=== PATIENT | male | born 1985 | race Caucasian/White ===

== ENCOUNTER 2018-04-16 00:10 | Emergency (ER) | payer OTHER, MEDICAID, SELFPAY ==
[2018-04-16 00:20] VITALS: BP 139/80; PULSE 88; RESP 18; TEMP 36.3; O2SAT 99; BMI 31.6
--- NOTE | 2018-04-16 00:25 | DI.RAD.S_ITS ---
PROCEDURE: XR CHEST 1V INDICATIONS: Chest pain TECHNIQUE: One view of the chest was acquired. COMPARISON: None. FINDINGS: Surgical changes and devices: None. Lungs and pleura: No pleural effusions or pneumothorax. Lungs are clear. Mediastinum: Mediastinal contours appear normal. Heart size is normal. Bones and chest wall: No suspicious bony lesions. Overlying soft tissues appear unremarkable. IMPRESSION: 1. No acute cardiopulmonary disease. Dictated by: Remy Roberto M.D. on 04/16/2018 at 10:56 Approved by: Remy Roberto M.D. on 04/16/2018 at 10:56
--- NOTE | 2018-04-16 00:38 | ED_ITS ---
HPI - Chest Pain General Chief Complaint: Chest Pain Stated Complaint: CHEST PAIN 30 MIN Time Seen by Provider: 04/16/18 00:25 Source: patient Mode of arrival: ambulatory Limitations: no limitations History of Present Illness HPI narrative: Patient is an otherwise healthy 33-year-old male here for evaluation of symptoms that occurred at approximately 10 30/11 o'clock last evening. He states that that he was was at home when he had a sudden onset of right-sided chest pain that was associated with nausea and flushing and feeling very hot. States it did not get worse with taking a breath or movement or palpation. He has never had anything like this before. He states that the flushing and nausea have resolved however he still is having right-sided chest pain although it is improving from the start of the pain. Has not tried anything for prior to arrival Related Data Previous Rx's Medication Instructions Recorded divalproex [Depakote ER] 250 mg PO [facility] #90 tab 07/29/16 Allergies Allergy/AdvReac Type Severity Reaction Status Date / Time No Known Allergies Allergy Uncoded 10/20/17 11:53 Review of Systems Constitutional Denies fatigue and Denies fever(s) Comments: Flushing ENT Ears, Nose, Mouth, and Throat: Denies vertigo and Denies dizziness Cardiovascular Reports chest pain, Denies syncope, Denies leg edema, Denies palpitations and Denies dyspnea Respiratory Denies cough and Denies dyspnea Gastrointestinal Gastrointestinal: Denies abdominal pain, Reports nausea and Denies vomiting Musculoskeletal Denies myalgias and Denies arthralgias Integumentary/Breasts Denies lesions and Denies rash Neurologic Denies vertigo, Denies dizziness and Denies syncope Endocrine Denies fatigue and Denies palpitations Hematologic/Lymphatic Denies easy bleeding and Denies easy bruising [facility] Medical History Depression (Acute) Surgical History No pertinent past surgical history (Acute) Family History Grandfather High cholesterol Social History Smoking Status: Never smoker Exam Initial Vital Signs Initial Vital Signs: Vital Signs Temperature 97.4 F L 04/16/18 00:20 Pulse Rate 88 04/16/18 00:20 Respiratory Rate 18 04/16/18 00:20 Blood Pressure 139/80 04/16/18 00:20 Pulse Oximetry 99 04/16/18 00:20 Const General: cooperative, healthy appearing, comfortable, well developed, well groomed and No acute distress Orientation: alert, awake and oriented x3 HENMT Head: normal to inspection and normocephalic Chest Chest: normal inspection of the chest Resp Effort & Inspection: normal respiratory effort Auscultation: clear to auscultation bilaterally Cardio Rate: regular rate Rhythm: regular rhythm Heart Sounds: no murmurs Pulses: radial pulses present GI Inspection: non-distended Palpation: soft, No firm and No tender Skin Lesions: no lesions Rashes: no rashes Neuro General: alert, awake and oriented x3 Extrem General: normal to inspection and capillary refill normal Psych Appearance: grossly normal and well kempt Scores PERC Score Age greater than or equal to 50 years: No Heart rate greater than or equal to 100 bpm: No Room Air O2 Sat less than 95%: No Unilateral leg swelling: No Recent trauma or surgery: No Hemoptysis: No Prior PE or DVT: No Hormone Use: No Total PERC Score: 0 Course Orders Ordered: ED Orders 04/16/18 EKG-12 Lead Routine 04/16/18 00:25 XR chest 1V Stat Vital Signs - 8 hr 04/16/18 00:20 04/16/18 01:06 Temperature 97.4 F L Pulse Rate 88 72 Respiratory Rate 18 Blood Pressure 139/80 Blood Pressure [Right Arm] 117/66 Pulse Oximetry 99 99 [facility] - Chest Pain Imaging Data Chest x-ray: Attestation: I personally reviewed and interpreted this imaging study as follows: My impression: No focal consolidation No pneumothorax Normal size heart ECG Data Attestation: I personally reviewed and interpreted this ECG as follows: Prior ECG tracings: not available for review Interpretation: Sinus rhythm Ventricular rate 81 Normal axis Normal intervals Normal QRS No ST T wave changes [facility] Narrative Medical decision making narrative: Patient with a right-sided chest pain. Normal EKG when he was having symptoms. Chest x-ray is unremarkable. Low risk for PE. Low risk for ACS. Unsure as the exact etiology of the symptoms however will hold on further workup for now. I did discuss all this with the patient. He was instructed he needed to contact his primary care doctor for follow-up. He was given return precautions. He expressed understanding and agreement with plan. Discharge Plan Departure Patient Disposition: Home Clinical Impression: Atypical chest pain Instructions: DI for Atypical Chest Pain Activity Restrictions/Additional Instructions: Recommend that you give your primary care doctor a call to establish follow-up in to discuss any further testing that may be needed. You can return to the emergency department at any time for new or worsening symptoms Prescriptions: No Action divalproex [Depakote ER] 250 MG tablet extended release 24 hr 250 mg PO [facility] Qty: 90 RF: 5
[2018-04-16 01:06] VITALS: BP 117/66; PULSE 72; O2SAT 99
--- NOTE | 2018-04-21 15:42 | PC.NURSE ---
Called pt for follow up,no answer
== END 2018-04-16 01:13 | disposition home or self-care (01) ==
PROVIDERS: Emergency Provider Emergency Medicine; PCP Family Medicine
DX: R07.89 Other chest pain (principal)
CPT/HCPCS: 71045; 93005; 99282; 99284

== ENCOUNTER 2019-10-25 16:19 | Emergency (ER) | payer OTHER, MEDICAID, SELFPAY ==
--- NOTE | 2019-10-25 16:23 | DI.RAD.S_ITS ---
PROCEDURE: XR CHEST 1V INDICATIONS: chest pain TECHNIQUE: One view of the chest was acquired. COMPARISON: [facility], CR, XR CHEST 1V, 04/16/2018, 0:31. FINDINGS: Surgical changes and devices: None. Lungs and pleura: Lungs are clear. No pleural effusions or pneumothorax. Mediastinum: Mediastinal contours appear normal. Heart size is normal. Bones and chest wall: No suspicious bony lesions. Overlying soft tissues appear unremarkable. IMPRESSION: 1. No acute cardiopulmonary disease. Dictated by: Remy Roberto M.D. on 10/25/2019 at 16:54 Approved by: Remy Roberto M.D. on 10/25/2019 at 16:54
[2019-10-25 16:24] VITALS: BP 159/70; PULSE 60; RESP 18; TEMP 36.9; O2SAT 99; BMI 32.3
[2019-10-25 16:50] VITALS: BP 146/78; PULSE 64; RESP 24; O2SAT 100
--- NOTE | 2019-10-25 16:50 | ED.CHESTPAIN ---
HPI - Chest Pain General Chief Complaint: Chest Pain Stated Complaint: states chest pain for a couple days Time Seen by Provider: 10/25/19 16:33 Source: patient Mode of arrival: Ambulatory Limitations: no limitations History of Present Illness HPI narrative: 34-year-old male here for evaluation of 3 days of retrosternal chest pain. He states that it started 3 days ago after he ate dinner. He states it has been constant since them although he has had times when it was worse than others. No other associated symptoms. He did try Pepto-Bismol and [place] without any improvement. He did try some Rolaids which helped his symptoms in the short term but then it returned. No GI symptoms. He states that the pain is not worse with breathing. Potentially is worse with movement. Some nausea but no vomiting. Related Data Previous Rx's Medication Instructions Recorded venlafaxine 150 mg 150 mg PO DAILY #90 cap 10/18/19 capsule,extended release 24 hr famotidine [Pepcid] 20 mg PO DAILY #30 tab 10/25/19 Allergies Allergy/AdvReac Type Severity Reaction Status Date / Time No Known Drug Allergies Allergy Verified 10/25/19 18:17 Review of Systems Constitutional Constitutional: Denies fever(s) Cardiovascular Cardiovascular: Reports chest pain and Denies dyspnea Respiratory Respiratory: Denies cough and Denies dyspnea Gastrointestinal Gastrointestinal: Denies abdominal pain, Denies change in bowel habits, Reports nausea and Denies vomiting Genitourinary Genitourinary: Denies dysuria Integumentary/Breasts Skin/Breast: Denies rash Neurologic Neurologic: Denies behavioral changes Psychiatric Psychiatric: Denies behavioral changes Hematologic/Lymphatic Hematologic/Lymphatic: Denies easy bleeding and Denies easy bruising Patient History Medical History Depression (Acute) Surgical History No pertinent past surgical history (Acute) Family History Grandfather High cholesterol Social History Smoking Status: Never smoker Smoking Status: Never smoker alcohol intake frequency: 0-2 drinks per day Substance Use Type: does not use Exam Initial Vital Signs Initial Vital Signs: Vital Signs Temperature 98.4 F 10/25/19 16:24 Pulse Rate 60 10/25/19 16:24 Respiratory Rate 18 10/25/19 16:24 Blood Pressure 159/70 H 10/25/19 16:24 Pulse Oximetry 99 10/25/19 16:24 Const General: cooperative, comfortable and well developed Limitations: mental status not altered HENMT Head: normal to inspection and normocephalic Resp Effort & Inspection: normal respiratory effort Auscultation: clear to auscultation bilaterally Cardio Rate: regular rate Rhythm: regular rhythm GI Inspection: non-distended Palpation: soft, No firm and No tender Skin Lesions: no lesions Rashes: no rashes Neuro General: alert, awake and oriented x3 Cognition: normal cognition Speech: speech normal Extrem General: normal to inspection and capillary refill normal Psych Appearance: grossly normal and well kempt Scores HEART Score Heart Score history: Slightly Suspicious Heart Score EKG: Normal Heart Score Age: < 45 years old Heart Score risk factors: 1-2 risk factors Heart Score troponin: < or = to normal limit Heart Score Total: 1 Course Orders Ordered: ED Orders 10/25/19 16:23 XR chest 1V Stat EKG-12 Lead Stat 10/25/19 16:40 Complete Blood Count AUTO DIFF Stat Comprehensive Metabolic Panel Stat Lipase Stat Troponin & CK Cardiac Panel Stat Discontinued Medications Aspirin (Aspirin Chew) 324 mg PO NOW ONE Stop: 10/25/19 16:24 Last Admin: 10/25/19 17:31 Dose: Not Given Documented by: LILI Sodium Chloride (Normal Saline 0.9%) 1,000 mls @ 150 mls/hr IV CONT MISBAH Last Admin: 10/25/19 17:32 Dose: Not Given Documented by: LILI Vital Signs Vital signs: Vital Signs - 8 hr 10/25/19 16:24 10/25/19 16:50 10/25/19 17:00 Temperature 98.4 F Pulse Rate 60 64 59 L Respiratory Rate 18 24 16 Blood Pressure 159/70 H Blood Pressure [Left Arm] 146/78 H 145/71 H Pulse Oximetry 99 100 99 10/25/19 18:06 Temperature Pulse Rate 58 L Respiratory Rate 28 H Blood Pressure Blood Pressure [Left Arm] 158/70 H Pulse Oximetry 99 MDM - Chest Pain Lab Data Attestation: I reviewed the patient's lab results. Result diagrams: 10/25/19 16:40 10/25/19 16:40 Labs: Lab Results 10/25/19 10/25/19 Range/Units 16:40 16:40 WBC 15.6 H (4.5-11.0) X10^3/uL RBC 4.66 (4.5-5.9) X10^6/uL Hgb 13.7 (13.5-17.5) g/dL Hct 39.5 L (41-53) % MCV 84.8 (80-100) fL MCH 29.5 (26-34) PG MCHC 34.8 (30-36) % RDW 12.8 (11.6-14.8) % Plt Count 298 (150-400) X10^3/uL Neut % (Auto) 71.7 (50-75) % Lymph % (Auto) 19.5 L (25-40) % [place] % (Auto) 7.9 (3-14) % Eos % (Auto) 0.0 L (2-4) % Baso % (Auto) 0.9 (0-2) % Neut # (Auto) 92176 H (6008-3983) /uL Lymph # (Auto) 3000 (9052-2682) /uL [place] # (Auto) 1200 H (0-900) /uL Eos # (Auto) 0 (0-450) /uL Baso # (Auto) 100 (0-100) /uL Sodium 139 (137-145) mmol/L Potassium 3.6 (3.4-5.1) mmol/L Chloride 99 (98-107) mmol/L Carbon Dioxide 29 (22-32) mmol/L BUN 12 (9-20) mg/dL Creatinine 0.74 (0.66-1.25) mg/dL Estimated GFR > 60.0 (>60) mL/min BUN/Creatinine Ratio 16.2 (6-22) Glucose 129 H (70-100) mg/dL Calcium 9.7 (8.4-10.2) mg/dL Total Bilirubin 0.6 (0.2-1.3) mg/dL AST 26 (17-59) IU/L ALT 17 (<50) IU/L Alkaline Phosphatase 130 H (38-126) U/L Total Creatine Kinase 94 (55-170) U/L CK-MB (CK-2) TNP CK-MB (CK-2) Rel Index TNP Troponin I < 0.012 (0.01-0.034) ng/mL Total Protein 9.0 H (6.3-8.2) g/dL Albumin 5.0 (3.5-5.0) g/dL Globulin 4.0 (1.7-4.1) g/dL Albumin/Globulin Ratio 1.3 (1.0-2.8) Lipase 110 (23-300) U/L Imaging Data Chest x-ray: Radiologist's Impression: [address] [address] XRay Report Signed Patient: Fabian El DMR#: [id number] : 1985Acct:[id number] Age/Sex: 34 / MDate of Service: 10/25/19 Loc: ED Accession Number: [id number] Procedure: XR chest 1V Ordering Provider: Lev Garner D.O. PROCEDURE: XR CHEST 1V INDICATIONS: chest pain TECHNIQUE: One view of the chest was acquired. COMPARISON: [facility], , XR CHEST 1V, 04/16/2018, 0:31. FINDINGS: Surgical changes and devices: None. Lungs and pleura: Lungs are clear. No pleural effusions or pneumothorax. Mediastinum: Mediastinal contours appear normal. Heart size is normal. Bones and chest wall: No suspicious bony lesions. Overlying soft tissues appear unremarkable. IMPRESSION: 1. No acute cardiopulmonary disease. Dictated by: Remy Roberto M.D. on 10/25/2019 at 16:54 Approved by: Remy Roberto M.D. on 10/25/2019 at 16:54 ECG Data Attestation: I personally reviewed and interpreted this ECG as follows: Prior ECG tracings: not available for review Interpretation: Sinus bradycardia Ventricular rate of 57 Normal axis Normal QRS Normal QTC No ST T wave changes MDM Narrative Medical decision making narrative: Low risk heart score, consistent chest pain for 3 days. Nonspecific changes on the EKG. Troponin negative greater than 6 hours of the onset of symptoms. I do suspect that his symptoms are GI related. Will send home with a prescription for Pepcid. I also discussed other [id number] antacids he could take. Discussed return precautions and follow-up instructions. He expressed understanding and agreement. Discharge Plan Departure Patient Disposition: Home Clinical Impression: Atypical chest pain Instructions: DI for Gastroesophageal Reflux Disease (GERD) Activity Restrictions/Additional Instructions: Recommend that you start taking the prescription that you were given today on a daily basis for the next 7-10 days. This prescription was electronically transmitted to [facility]. After that you can take it as needed. You can also take [id number] antacids such as Maalox or Mylanta. These are the liquid version some of antacids. You can also take Tums or Rolaids. These are the chewable tablets. The generic version of these medications as appropriate. Contact your primary provider for follow-up. Prescriptions: New famotidine [Pepcid] 20 mg tablet 20 mg PO DAILY Qty: 30 RF: 0 No Action venlafaxine 150 mg capsule,extended release 24hr 150 mg PO DAILY Qty: 90 RF: 0
[2019-10-25 16:52] LABS: Add Manual Diff / Slide Review NO; Basophils Absolute Auto 100 /uL (0-100); Basophils Percent Auto 0.9 % (0-2); Eosinophils Absolute Auto 0 /uL (0-450); Hematocrit 39.5 % (41-53); Hemoglobin 13.7 g/dL (13.5-17.5); Lymphocytes Absolute Auto 3000 /uL (1100-4500); Lymphocytes Percent Auto 19.5 % (25-40); Mean Corpuscular HGB Conc 34.8 % (30-36); Mean Corpuscular Hemoglobin 29.5 PG (26-34); Mean Corpuscular Volume 84.8 fL (80-100); Monocytes Absolute Auto 1200 /uL (0-900); Monocytes Percent Auto 7.9 % (3-14); Neutrophils Absolute Auto 11200 /uL (1500-7000); Neutrophils Percent Auto 71.7 % (50-75); Platelet Count 298 X10^3/uL (150-400); Red Blood Cell Count 4.66 X10^6/uL (4.5-5.9); Red Cell Distribution Width 12.8 % (11.6-14.8); White Blood Cell Count 15.6 X10^3/uL (4.5-11.0)
[2019-10-25 17:00] VITALS: BP 145/71; PULSE 59; RESP 16; O2SAT 99
[2019-10-25 17:07] LABS: Alanine Aminotransferase 17 IU/L (<50); Albumin Globulin Ratio 1.3 (1.0-2.8); Alkaline Phosphatase 130 U/L (38-126); Aspartate Aminotransferase 26 IU/L (17-59); BUN Creatinine Ratio 16.2 (6-22); Bilirubin Total 0.6 mg/dL (0.2-1.3); Blood Urea Nitrogen 12 mg/dL (9-20); Calcium 9.7 mg/dL (8.4-10.2); Carbon Dioxide 29 mmol/L (22-32); Chloride 99 mmol/L (98-107); Creatine Kinase 94 U/L (55-170); Estimated Glomerular Filt Rate > 60.0 mL/min (>60); Glucose 129 mg/dL (70-100); HEMOLYSIS < 15 (0-50); Lipase 110 U/L (23-300); Potassium 3.6 mmol/L (3.4-5.1); Sodium 139 mmol/L (137-145)
[2019-10-25 17:19] LABS: Troponin I < 0.012 ng/mL (0.01-0.034)
[2019-10-25 18:06] VITALS: BP 158/70; PULSE 58; RESP 28; O2SAT 99
--- NOTE | 2019-10-25 18:07 | PC.NURSE ---
Pt respirations elevated when returning to restroom. Pt very short with this RN and wants to know what is going on. I informed him that we talked with Dr. Garner and he will be in shortly to discuss his results. I asked pt if there is anything I can go to assist or make things better. He states he just uncomfortable. Dr. Garner now at bedside.
== END 2019-10-25 18:34 | disposition home or self-care (01) ==
PROVIDERS: Emergency Provider Emergency Medicine
DX: R07.89 Other chest pain (principal); R00.1 Bradycardia, unspecified
CPT/HCPCS: 36415; 71045; 80053; 82550; 83690; 84484; 85025; 93005; 99284

== ENCOUNTER 2019-10-26 06:34 | Inpatient (IN) | payer OTHER, MEDICAID, SELFPAY ==
[2019-10-26] VITALS (7 sets, daily range): BP systolic 102–138; BP diastolic 49–77; PULSE 65–78; RESP 17–28; TEMP 36.5–37.2; O2SAT 91–99; BMI 34.8
[2019-10-26 06:54] LABS: Bacteria Urine None Seen
[2019-10-26 06:59] LABS: INR 1.2 (0.9-1.3); Prothrombin Time 13.8 SECONDS (10.1-12.7)
[2019-10-26 07:01] LABS: PTT Partial Thromboplastin Tim 35 SECONDS (26.4-36.2)
[2019-10-26 07:02] LABS: Add Manual Diff / Slide Review NO; Basophils Absolute Auto 100 /uL (0-100); Basophils Percent Auto 0.6 % (0-2); Eosinophils Absolute Auto 0 /uL (0-450); Hematocrit 39.7 % (41-53); Hemoglobin 13.9 g/dL (13.5-17.5); Lymphocytes Absolute Auto 1200 /uL (1100-4500); Lymphocytes Percent Auto 5.7 % (25-40); Mean Corpuscular Hemoglobin 29.6 PG (26-34); Mean Corpuscular Volume 84.4 fL (80-100); Monocytes Absolute Auto 2000 /uL (0-900); Monocytes Percent Auto 9.4 % (3-14); Neutrophils Absolute Auto 17700 /uL (1500-7000); Neutrophils Percent Auto 84.3 % (50-75); Platelet Count 343 X10^3/uL (150-400); Red Cell Distribution Width 12.7 % (11.6-14.8)
--- NOTE | 2019-10-26 07:03 | ED.ABDPAIN ---
HPI - Abdominal Pain General Chief Complaint: Abdominal Pain Stated Complaint: vomiting Time Seen by Provider: 10/26/19 07:00 Source: patient and old records reviewed Mode of arrival: Ambulatory Limitations: no limitations History of Present Illness HPI narrative: This is a 34-year-old male who comes emergency department with complaint of abdominal pain and vomiting. Patient was seen here yesterday complaining more of epigastric chest pain that had been present for several days. He was suspected have GERD and was sent home with a prescription for famotidine. Patient states as soon as he started taking it he started throwing up at home. Had for 5 episodes at home. States it was sort of brownish in coloration with chunks. He has not had any documented fevers but has had chills and sweats. He states that the chest discomfort has improved but now he has more abdominal discomfort he describes it as generalized but a little bit more crampy on the right side. He has been having bowel movements although he states a little bit less than normal. No color changes. He has been urinating without any issue, no dysuria, urgency or frequency. He denies any back or flank pain. Patient states he takes an antidepressant which is venlafaxine, he has not had any new medication changes. He denies any prior surgeries. Denies any allergies to medications. Denies any tobacco, alcohol or illicit. Related Data Previous Rx's Medication Instructions Recorded venlafaxine 150 mg 150 mg PO DAILY #90 cap 10/18/19 capsule,extended release 24 hr famotidine [Pepcid] 20 mg PO DAILY #30 tab 10/25/19 Allergies Allergy/AdvReac Type Severity Reaction Status Date / Time No Known Drug Allergies Allergy Verified 10/25/19 18:17 Review of Systems Review of Systems ROS Unobtainable: All systems reviewed & are unremarkable except as noted in HPI and below Patient History Medical History Depression (Acute) Surgical History No pertinent past surgical history (Acute) Family History Grandfather High cholesterol Brother Seizures Social History Smoking Status: Never smoker alcohol intake: never Smoking Status: Never smoker alcohol intake frequency: 0-2 drinks per day Substance Use Type: does not use Exam Narrative Exam Narrative: GENERAL: Alert and oriented x three, moderately obese male in mild distress. HEENT: Head normocephalic, atraumatic, EOMI, pupils reactive, face symmetric, moist mucous membranes NECK: Supple, full range of motion CARDIOVASCULAR: Regular rate and rhythm without murmurs, rubs or gallops. RESPIRATORY: Breath sounds equal bilaterally, no wheezes rales or rhonchi. ABDOMEN: Soft, positive right upper and right lower quadrant tenderness, greatest at the right lower quadrant. Normoactive bowel sounds all 4 quadrants. No guarding or rebound, rigidity, no mass, no distention. : No CVA tenderness EXTREMITIES: Normal range of motion, no clubbing or edema. Neurovascularly intact NEUROLOGICAL: Cranial nerves II through XII grossly intact. Moving all extremities. Normal gait. SKIN: Warm, dry, no petechiae, no rashes or lesions. Initial Vital Signs Initial Vital Signs: Vital Signs Temperature 98.9 F 10/26/19 06:39 Pulse Rate 78 10/26/19 06:39 Respiratory Rate 28 H 10/26/19 06:39 Blood Pressure 132/61 10/26/19 06:39 Pulse Oximetry 97 10/26/19 06:39 Course Orders Ordered: Enoxaparin Sodium (Lovenox) 40 mg SUBCUT DAILY [facility] Last Admin: 10/26/19 10:38 Dose: 40 mg Documented by: RAYSHAWN Lactated Ringer's (Lactated Ringers) 1,000 mls @ 125 mls/hr IV CONT [facility] Last Admin: 10/26/19 09:40 Dose: 125 mls/hr Documented by: NILA Piperacillin/Tazobactam/Dextrose (Zosyn) 3.375 gm in 50 mls @ 100 mls/hr IV Q6H [facility] Last Admin: 10/26/19 16:36 Dose: 100 mls/hr Documented by: Infusion: 10/26/19 11:55 Dose: 0 mls/hr Documented by: Admin: 10/26/19 10:38 Dose: 100 mls/hr Documented by: RAYSHAWN Ketorolac Tromethamine (Toradol) 30 mg IV Q6HR PRN PRN Reason: Pain, Moderate (4-6) Stop: 10/31/19 09:35 Last Admin: 10/26/19 16:35 Dose: 30 mg Documented by: Admin: 10/26/19 10:50 Dose: 30 mg Documented by: RAYSHAWN Naloxone HCl (Narcan) 0.2 mg IV Q2MIN PRN PRN Reason: Opiate Reversal Meds Stored In (Pharmacy) 1 each PO PRN PRN PRN Reason: PRN Ondansetron HCl (Zofran) 4 mg IV Q4HR PRN PRN Reason: Nausea And Vomiting Last Admin: 10/26/19 14:51 Dose: 4 mg Documented by: Admin: 10/26/19 10:50 Dose: 4 mg Documented by: RAYSHAWN Pantoprazole Sodium (Protonix) 40 mg IV DAILY [facility] Last Admin: 10/26/19 10:38 Dose: 40 mg Documented by: RAYSHAWN Venlafaxine HCl (Effexor Xr) 150 mg PO DAILY [facility] Last Admin: 10/26/19 11:56 Dose: Not Given Documented by: RAYSHAWN Discontinued Medications Sodium Chloride (Normal Saline 0.9%) 1,000 mls @ 1,000 mls/hr IV BOLUS ONE Stop: 10/26/19 08:08 Last Infusion: 10/26/19 09:33 Dose: 0 mls/hr Documented by: Admin: 10/26/19 07:58 Dose: 1,000 mls/hr Documented by: NILA Ketorolac Tromethamine (Toradol) 30 mg IV NOW ONE Stop: 10/26/19 07:39 Last Admin: 10/26/19 07:57 Dose: 30 mg Documented by: NILA Ondansetron HCl (Zofran) 4 mg IV NOW ONE Stop: 10/26/19 07:39 Last Admin: 10/26/19 07:58 Dose: 4 mg Documented by: NILA Vital Signs Vital signs: Vital Signs - 8 hr 10/26/19 06:39 Temperature 98.9 F Pulse Rate 78 Respiratory Rate 28 H Blood Pressure 132/61 Pulse Oximetry 97 MDM - Abdominal Pain Lab Data Attestation: I reviewed the patient's lab results. Result diagrams: 10/26/19 06:45 04/16/20 06:45 Labs: Lab Results 10/26/19 10/26/19 10/26/19 Range/Units 06:45 06:45 06:45 WBC 21.0 H (4.5-11.0) X10^3/uL RBC 4.70 (4.5-5.9) X10^6/uL Hgb 13.9 (13.5-17.5) g/dL Hct 39.7 L (41-53) % MCV 84.4 (80-100) fL MCH 29.6 (26-34) PG MCHC 35.0 (30-36) % RDW 12.7 (11.6-14.8) % Plt Count 343 (150-400) X10^3/uL Neut % (Auto) 84.3 H (50-75) % Lymph % (Auto) 5.7 L (25-40) % [place] % (Auto) 9.4 (3-14) % Eos % (Auto) 0.0 L (2-4) % Baso % (Auto) 0.6 (0-2) % Neut # (Auto) 62649 H (4593-0299) /uL Lymph # (Auto) 1200 (7496-1283) /uL [place] # (Auto) 2000 H (0-900) /uL Eos # (Auto) 0 (0-450) /uL Baso # (Auto) 100 (0-100) /uL PT 13.8 H (10.1-12.7) SECONDS INR 1.2 (0.9-1.3) APTT 35 (26.4-36.2) SECONDS Sodium (137-145) mmol/L Potassium (3.4-5.1) mmol/L Chloride (98-107) mmol/L Carbon Dioxide (22-32) mmol/L BUN (9-20) mg/dL Creatinine (0.66-1.25) mg/dL Estimated GFR (>60) mL/min BUN/Creatinine Ratio (6-22) Glucose (70-100) mg/dL Lactate (0.7-2.1) mmol/L Calcium (8.4-10.2) mg/dL Total Bilirubin (0.2-1.3) mg/dL AST (17-59) IU/L ALT (<50) IU/L Alkaline Phosphatase (38-126) U/L Total Creatine Kinase (55-170) U/L CK-MB (CK-2) (<2.37) ng/mL CK-MB (CK-2) Rel Index (1.5-5.0) % Troponin I (0.01-0.034) ng/mL Total Protein (6.3-8.2) g/dL Albumin (3.5-5.0) g/dL Globulin (1.7-4.1) g/dL Albumin/Globulin Ratio (1.0-2.8) Lipase (23-300) U/L Procalcitonin (<0.5) ng/mL Urine RBC 0-1/hpf (0-5/HPF) Urine WBC 1-5/hpf (0-5/HPF) Ur Squamous Epith Cells 1-5 /hpf (0-5/HPF) Urine Bacteria None seen (None) Urine Mucus 1+ H (Negative) Ur Culture Indicated? Cult not indicated 10/26/19 10/26/19 10/26/19 Range/Units 06:45 06:45 06:45 WBC (4.5-11.0) X10^3/uL RBC (4.5-5.9) X10^6/uL Hgb (13.5-17.5) g/dL Hct (41-53) % MCV (80-100) fL MCH (26-34) PG MCHC (30-36) % RDW (11.6-14.8) % Plt Count (150-400) X10^3/uL Neut % (Auto) (50-75) % Lymph % (Auto) (25-40) % [place] % (Auto) (3-14) % Eos % (Auto) (2-4) % Baso % (Auto) (0-2) % Neut # (Auto) (1057-2240) /uL Lymph # (Auto) (5996-3852) /uL [place] # (Auto) (0-900) /uL Eos # (Auto) (0-450) /uL Baso # (Auto) (0-100) /uL PT (10.1-12.7) SECONDS INR (0.9-1.3) APTT (26.4-36.2) SECONDS Sodium 140 (137-145) mmol/L Potassium 3.6 (3.4-5.1) mmol/L Chloride 101 (98-107) mmol/L Carbon Dioxide 24 (22-32) mmol/L BUN 13 (9-20) mg/dL Creatinine 0.63 L (0.66-1.25) mg/dL Estimated GFR > 60.0 (>60) mL/min BUN/Creatinine Ratio 20.6 (6-22) Glucose 165 H (70-100) mg/dL Lactate 1.3 (0.7-2.1) mmol/L Calcium 9.9 (8.4-10.2) mg/dL Total Bilirubin 0.8 (0.2-1.3) mg/dL AST 32 (17-59) IU/L ALT 18 (<50) IU/L Alkaline Phosphatase 119 (38-126) U/L Total Creatine Kinase (55-170) U/L CK-MB (CK-2) (<2.37) ng/mL CK-MB (CK-2) Rel Index (1.5-5.0) % Troponin I (0.01-0.034) ng/mL Total Protein 9.3 H (6.3-8.2) g/dL Albumin 5.2 H (3.5-5.0) g/dL Globulin 4.1 (1.7-4.1) g/dL Albumin/Globulin Ratio 1.3 (1.0-2.8) Lipase 30 D (23-300) U/L Procalcitonin 0.05 (<0.5) ng/mL Urine RBC (0-5/HPF) Urine WBC (0-5/HPF) Ur Squamous Epith Cells (0-5/HPF) Urine Bacteria (None) Urine Mucus (Negative) Ur Culture Indicated? 10/26/19 Range/Units 06:45 WBC (4.5-11.0) X10^3/uL RBC (4.5-5.9) X10^6/uL Hgb (13.5-17.5) g/dL Hct (41-53) % MCV (80-100) fL MCH (26-34) PG MCHC (30-36) % RDW (11.6-14.8) % Plt Count (150-400) X10^3/uL Neut % (Auto) (50-75) % Lymph % (Auto) (25-40) % [place] % (Auto) (3-14) % Eos % (Auto) (2-4) % Baso % (Auto) (0-2) % Neut # (Auto) (2539-4333) /uL Lymph # (Auto) (7174-0303) /uL [place] # (Auto) (0-900) /uL Eos # (Auto) (0-450) /uL Baso # (Auto) (0-100) /uL PT (10.1-12.7) SECONDS INR (0.9-1.3) APTT (26.4-36.2) SECONDS Sodium (137-145) mmol/L Potassium (3.4-5.1) mmol/L Chloride (98-107) mmol/L Carbon Dioxide (22-32) mmol/L BUN (9-20) mg/dL Creatinine (0.66-1.25) mg/dL Estimated GFR (>60) mL/min BUN/Creatinine Ratio (6-22) Glucose (70-100) mg/dL Lactate (0.7-2.1) mmol/L Calcium (8.4-10.2) mg/dL Total Bilirubin (0.2-1.3) mg/dL AST (17-59) IU/L ALT (<50) IU/L Alkaline Phosphatase (38-126) U/L Total Creatine Kinase 118 (55-170) U/L CK-MB (CK-2) 0.36 (<2.37) ng/mL CK-MB (CK-2) Rel Index 0.3 L (1.5-5.0) % Troponin I < 0.012 (0.01-0.034) ng/mL Total Protein (6.3-8.2) g/dL Albumin (3.5-5.0) g/dL Globulin (1.7-4.1) g/dL Albumin/Globulin Ratio (1.0-2.8) Lipase (23-300) U/L Procalcitonin (<0.5) ng/mL Urine RBC (0-5/HPF) Urine WBC (0-5/HPF) Ur Squamous Epith Cells (0-5/HPF) Urine Bacteria (None) Urine Mucus (Negative) Ur Culture Indicated? Point of care testing: Urine Dip Bedside Urine Glucose Negative Bedside Urine Bilirubin + 1 Bedside Urine Ketone +++ 80 Urine Specific [place] 1.025 Bedside Urine Occult Blood +/- Bedside Urine pH 6.0 Bedside Urine Protein ++ 100 Bedside Urine Urobilinogen 1+ 2mg Bedside Urine Nitrite - Negative Bedside Urine Leukocytes +/- [address] scan - abdomen/pelvis: Radiologist's Impression: [address] [address] [address] Scan Report Signed Patient: Fabian El DMR#: [id number] : 1985Acct:[id number] Age/Sex: 34 / MDate of Service: 10/26/19 Loc: ED Accession Number: [id number] Procedure: CT abdomen pelvis w con Ordering Provider: Florina San D.O. PROCEDURE: CT ABDOMEN PELVIS W CON INDICATIONS: abdominal pain, RUQ and RLQ tenderness. wbc 21 TECHNIQUE: After the administration of intravenous contrast, 5 mm thick sections acquired from the diaphragm to the symphysis. 5 mm coronal and sagittal reformats were acquired. For radiation dose reduction, the following was used: automated exposure control, adjustment of mA and/or kV according to patient size. COMPARISON: None. FINDINGS: Image quality: Excellent. ABDOMEN: Lung bases: Lung bases are clear. Heart size is normal. Solid organs: Liver is normal in size and enhancement. Gallbladder is distended. There is extensive inflammatory change in the fat adjacent to the gallbladder, either related to the gallbladder or the hepatic flexure of the colon. Biliary system is non dilated. Pancreas enhances normally. Spleen is normal in size and enhancement. No adrenal nodules. Kidneys demonstrate normal size and enhancement, without hydronephrosis. Peritoneum and bowel: Bowel loops demonstrate normal wall thickness and caliber. No free fluid or air. This is status of inflammatory change in the fat adjacent to the gallbladder and the hepatic flexure of the colon, indicating inflammation either related to the gallbladder or the hepatic flexure region of the colon. Nodes and vessels: No retroperitoneal or mesenteric adenopathy by size criteria. Aorta and inferior vena cava are normal in size. Miscellaneous: No ventral hernias. PELVIS: Genitourinary: Bladder wall thickness is normal. Miscellaneous: No inguinal hernias or adenopathy. Bones: No suspicious bony lesions. No vertebral body compression fractures. IMPRESSION: There is an acute inflammatory process in the right upper quadrant which either represents hepatic flexure region colonic diverticulitis versus cholecystitis and adjacent inflammatory change in the surrounding fat. Dictated by: Nacho Singh M.D. on 10/26/2019 at 8:17 Approved by: Nacho Singh M.D. on 10/26/2019 at 8:25 ECG Data Attestation: I personally reviewed and interpreted this ECG as follows: Interpretation: Sinus rhythm rate of 68 LA 141 QRS of 111 and QTC of 445. No ST elevation or depression appreciated. Patient has not change in lead 3 but appears similar to prior EKG from 04/16/2018 without any new changes. MDM Narrative Medical decision making narrative: Patient lab showed a leukocytosis yesterday 15 is 21 this morning, hematocrit is 39. Patient has left shift with neutrophils at 84% and lymphocytes of 5.7 decreased from 19 yesterday.. Creatinine is in normal range with normal electrolytes. Glucose is 165 with normal LFTs total protein is elevated on both visits. Lactate blood cultures were included as patient does have an elevation in his white count although this may be reactive as well as procalcitonin and the show no major elevation. Patient's urine shows ketones some bili and protein and leukocyte esterase. Patient has 1-5 wbc's but also 1-5 squamous epithelials with no bacteria. Discussed with Dr. Dasilva, patient has right upper and some right lower quadrant tenderness. He has inflammation adjacent to the gallbladder. His LFTs are normal. His pain did start sort of epigastric and chest region and has moved to his abdomen and has been vomiting several times overnight. After review of images Dr. Perez evaluated patient in the department. Plan for observation for suspected colitis vs. cholecystitis although suspicion is higher for colitis with his RLQ and RUQ pain, normal LFTs and negative procalcitonin. Dr. Dasilva will order antibiotics. Discharge Plan Departure Patient Disposition: Admitted as Observation Clinical Impression: Colitis Discharge Date/Time: 10/26/19 09:41 Admit Date/Time: 10/26/19 09:14 Admit Provider: Francisco Dasilva
[2019-10-26 07:09] LABS: RBC Urine 0-1/HPF (0-5/HPF); Squamous Epithelial Cell Urine 1-5 /HPF (0-5/HPF); WBC Urine 1-5/HPF (0-5/HPF)
[2019-10-26 07:10] LABS: Culture Indicated Urine Cult Not Indicated; Mucus Urine 1+ (Negative)
[2019-10-26 07:30] LABS: Alanine Aminotransferase 18 IU/L (<50); Albumin 5.2 g/dL (3.5-5.0); Albumin Globulin Ratio 1.3 (1.0-2.8); Alkaline Phosphatase 119 U/L (38-126); Aspartate Aminotransferase 32 IU/L (17-59); BUN Creatinine Ratio 20.6 (6-22); Bilirubin Total 0.8 mg/dL (0.2-1.3); Blood Urea Nitrogen 13 mg/dL (9-20); Calcium 9.9 mg/dL (8.4-10.2); Carbon Dioxide 24 mmol/L (22-32); Chloride 101 mmol/L (98-107); Estimated Glomerular Filt Rate > 60.0 mL/min (>60); Globulin 4.1 g/dL (1.7-4.1); Glucose 165 mg/dL (70-100); HEMOLYSIS < 15 (0-50); Lipase 30 U/L (23-300); Potassium 3.6 mmol/L (3.4-5.1); Sodium 140 mmol/L (137-145); Total Protein 9.3 g/dL (6.3-8.2)
--- NOTE | 2019-10-26 07:32 | DI.CT.S_ITS ---
PROCEDURE: CT ABDOMEN PELVIS W CON INDICATIONS: abdominal pain, RUQ and RLQ tenderness. wbc 21 TECHNIQUE: After the administration of intravenous contrast, 5 mm thick sections acquired from the diaphragm to the symphysis. 5 mm coronal and sagittal reformats were acquired. For radiation dose reduction, the following was used: automated exposure control, adjustment of mA and/or kV according to patient size. COMPARISON: None. FINDINGS: Image quality: Excellent. ABDOMEN: Lung bases: Lung bases are clear. Heart size is normal. Solid organs: Liver is normal in size and enhancement. Gallbladder is distended. There is extensive inflammatory change in the fat adjacent to the gallbladder, either related to the gallbladder or the hepatic flexure of the colon. Biliary system is non dilated. Pancreas enhances normally. Spleen is normal in size and enhancement. No adrenal nodules. Kidneys demonstrate normal size and enhancement, without hydronephrosis. Peritoneum and bowel: Bowel loops demonstrate normal wall thickness and caliber. No free fluid or air. This is status of inflammatory change in the fat adjacent to the gallbladder and the hepatic flexure of the colon, indicating inflammation either related to the gallbladder or the hepatic flexure region of the colon. Nodes and vessels: No retroperitoneal or mesenteric adenopathy by size criteria. Aorta and inferior vena cava are normal in size. Miscellaneous: No ventral hernias. PELVIS: Genitourinary: Bladder wall thickness is normal. Miscellaneous: No inguinal hernias or adenopathy. Bones: No suspicious bony lesions. No vertebral body compression fractures. IMPRESSION: There is an acute inflammatory process in the right upper quadrant which either represents hepatic flexure region colonic diverticulitis versus cholecystitis and adjacent inflammatory change in the surrounding fat. Dictated by: Nacho Singh M.D. on 10/26/2019 at 8:17 Approved by: Nacho Singh M.D. on 10/26/2019 at 8:25
[2019-10-26] MEDS: KETOROLAC 60 MG/2 ML VIAL 30 MG IV (07:57)
[2019-10-26] MEDS: SODIUM CHLORIDE 0.9% 1,000 ML 1000 ML IV (07:58)
[2019-10-26] MEDS: ONDANSETRON 4 MG/2 ML INJ IV ×3 (07:58→14:51)
[2019-10-26 08:02] LABS: Creatine Kinase 118 U/L (55-170)
[2019-10-26 08:03] LABS: Lactate (Lactic Acid) 1.3 mmol/L (0.7-2.1)
[2019-10-26 08:15] LABS: Troponin I < 0.012 ng/mL (0.01-0.034)
[2019-10-26 08:18] LABS: CKMB % Relative Index 0.3 % (1.5-5.0); Creatine Kinase MB 0.36 ng/mL (<2.37)
[2019-10-26 08:29] LABS: Procalcitonin 0.05 ng/mL (<0.5)
--- NOTE | 2019-10-26 09:38 | DI.NM.S_ITS ---
PROCEDURE: NM HIDA NO EJECTION FRACTION RADIOPHARMACEUTICAL: 5.2 mCi Tc-99m mebrofenin IV. INDICATIONS: abnormal CT r/o acalculus cholecystitis TECHNIQUE: Following intravenous administration of Tc-99m mebrofenin, sequential anterior abdominal images were obtained through at least 60 minutes. COMPARISON: [facility], CT, CT ABDOMEN PELVIS W CON, 10/26/2019, 7:45. FINDINGS: There is normal tracer uptake and excretion by the liver. There is normal visualization of intrahepatic ducts and common bile duct. There is absence of radiotracer activity in the gallbladder up to 120 minutes after administration There is normal tracer excretion into duodenum. IMPRESSION: Absence of radiotracer uptake in the gallbladder consistent with acute cholecystitis. Dictated by: Veronica Humphrey MD, PhD on 10/26/2019 at 15:13 Approved by: Veronica Humphrey MD, PhD on 10/26/2019 at 15:15
--- NOTE | 2019-10-26 09:38 | PM.HP.1 ---
History of Present Illness History of Present Illness Date Patient Seen: 10/26/19 Time Patient Seen: 09:25 Date of Onset of Symptoms: 10/25/19 Chief complaint: vomiting Narrative: The patient is a 34-year-old who was in the emergency room yesterday with chest pain. He was evaluated and thought to have symptoms related to reflux and was sent home on from odd a [place]. He vomited it and came back to the emergency room with pain in the right upper quadrant. Pain increases with movement. It is a dull ache. He also cuts off is breathing when he tries to take a deep breath. He has not had this before. He does have occasional nausea over time. He has had no prior abdominal operations. (Actually he has had no operations at all) Patient History Medical History Depression (Acute) Surgical History No pertinent past surgical history (Acute) Family & Social History Family History Grandfather High cholesterol Brother Seizures Safety & Behavioral: Feels Safe in Current Yes Environment Tobacco & Substance use: Smoking Status Never smoker alcohol intake frequency 0-2 drinks per day Substance Use Type does not use Meds Home Medications and Allergies Home Medications Medication Instructions Recorded Confirmed Type venlafaxine 150 mg 150 mg PO DAILY #90 cap 10/18/19 Rx capsule,extended release 24 hr famotidine [Pepcid] 20 mg PO DAILY #30 tab 10/25/19 Rx Allergies Allergy/AdvReac Type Severity Reaction Status Date / Time No Known Drug Allergies Allergy Verified 10/25/19 18:17 Review of Systems Review of Systems Narrative: Patient now has occasional pain especially in his left eye and causes him to have a headache. He wears glasses. No earaches or sore throat. No tooth aches at this time. Denies any cough or cold right now. No sputum production. No asthma. He does have occasional seasonal allergies to dust. No problems with his heart that he is aware of. No murmurs. He was evaluated in the past for chest pain and had an EKG and was told that he might have had a heart attack and then was told he did not have a heart attack. Patient denies any black or bloody bowel movements. He says occasionally is eyes twitch back in for thin he thinks he may have a frontal lobe seizure. It is never been evaluated. No unusual bruising or bleeding. He does have depression and is treated with medication. No anxiety. No hallucinations. He urinates frequently throughout the day in fairly large volumes he says. He does drink a lot of coffee however he says. Exam Vital Signs (past 8 hours): - 10/26/19 06:39 Temperature 98.9 F Pulse Rate 78 Respiratory Rate 28 H Blood Pressure 132/61 Pulse Oximetry 97 Oxygen Delivery Method Room Air Narrative Exam Narrative: Cooperative gentleman laying fairly still. He is in no distress. Bit overweight. His eyes are nonicteric. Pupils are large equal round reactive to light. Conjunctivae are pink. Ears without lesion. Oral mucosa is pink moist teeth are intact. No nodes in the neck supraclavicular areas. No masses in the neck. No bruits in the neck. His lungs are clear to auscultation though he does have decreased breath sounds in the bases. He stops breathing because the pain is right abdomen. Patient no wheezing or rhonchi. Equal to percussion bilaterally. Heart seems a little hyperdynamic and may have a soft murmur at the left sternal border without radiation into the neck. No gallop. His abdomen is protuberant soft. There is localized tenderness in the right abdomen just below the rib cage laterally. The remainder of his abdomen is soft nontender. There are no ventral hernias appreciated. His extremities are without cyanosis or clubbing. No bony defects noted. No swelling of the joints. His reflexes are hyper reflexive 3+. He is alert and oriented x3. Speech rate and content are appropriate. Affect is appropriate. Uvula elevates in the midline face is symmetric tongue is midline. Objective Imaging CT scan - abdomen: My impression: Patient has inflammation in the right abdomen near the hepatic flexure and adjacent to the gallbladder. The gallbladder wall does not seem to be thickened and I see no defect suggestive of stones within the gallbladder. The remainder of his abdomen is unremarkable except for lot of fluid in the stomach. Labs Result Diagrams: 10/26/19 06:45 10/26/19 06:45 Labs: Laboratory Results - last 24 hr 10/26/19 10/26/19 10/26/19 06:45 06:45 06:45 WBC 21.0 H RBC 4.70 Hgb 13.9 Hct 39.7 L MCV 84.4 MCH 29.6 MCHC 35.0 RDW 12.7 Plt Count 343 Neut % (Auto) 84.3 H Lymph % (Auto) 5.7 L [place] % (Auto) 9.4 Eos % (Auto) 0.0 L Baso % (Auto) 0.6 Neut # (Auto) 28286 H Lymph # (Auto) 1200 [place] # (Auto) 2000 H Eos # (Auto) 0 Baso # (Auto) 100 PT 13.8 H INR 1.2 APTT 35 Sodium Potassium Chloride Carbon Dioxide BUN Creatinine Estimated GFR BUN/Creatinine Ratio Glucose Lactate Calcium Total Bilirubin AST ALT Alkaline Phosphatase Total Creatine Kinase CK-MB (CK-2) CK-MB (CK-2) Rel Index Troponin I Total Protein Albumin Globulin Albumin/Globulin Ratio Lipase Procalcitonin Urine RBC 0-1/hpf Urine WBC 1-5/hpf Ur Squamous Epith Cells 1-5 /hpf Urine Bacteria None seen Urine Mucus 1+ H Ur Culture Indicated? Cult not indicated 10/26/19 10/26/19 10/26/19 06:45 06:45 06:45 WBC RBC Hgb Hct MCV MCH MCHC RDW Plt Count Neut % (Auto) Lymph % (Auto) [place] % (Auto) Eos % (Auto) Baso % (Auto) Neut # (Auto) Lymph # (Auto) [place] # (Auto) Eos # (Auto) Baso # (Auto) PT INR APTT Sodium 140 Potassium 3.6 Chloride 101 Carbon Dioxide 24 BUN 13 Creatinine 0.63 L Estimated GFR > 60.0 BUN/Creatinine Ratio 20.6 Glucose 165 H Lactate 1.3 Calcium 9.9 Total Bilirubin 0.8 AST 32 ALT 18 Alkaline Phosphatase 119 Total Creatine Kinase CK-MB (CK-2) CK-MB (CK-2) Rel Index Troponin I Total Protein 9.3 H Albumin 5.2 H Globulin 4.1 Albumin/Globulin Ratio 1.3 Lipase 30 D Procalcitonin 0.05 Urine RBC Urine WBC Ur Squamous Epith Cells Urine Bacteria Urine Mucus Ur Culture Indicated? 10/26/19 06:45 WBC RBC Hgb Hct MCV MCH MCHC RDW Plt Count Neut % (Auto) Lymph % (Auto) [place] % (Auto) Eos % (Auto) Baso % (Auto) Neut # (Auto) Lymph # (Auto) [place] # (Auto) Eos # (Auto) Baso # (Auto) PT INR APTT Sodium Potassium Chloride Carbon Dioxide BUN Creatinine Estimated GFR BUN/Creatinine Ratio Glucose Lactate Calcium Total Bilirubin AST ALT Alkaline Phosphatase Total Creatine Kinase 118 CK-MB (CK-2) 0.36 CK-MB (CK-2) Rel Index 0.3 L Troponin I < 0.012 Total Protein Albumin Globulin Albumin/Globulin Ratio Lipase Procalcitonin Urine RBC Urine WBC Ur Squamous Epith Cells Urine Bacteria Urine Mucus Ur Culture Indicated? Assessment & Plan Assessment & Plan narrative: It is difficult to tell if the patient has acalculous cholecystitis causing inflammation in the adjacent colon or if he has diverticulitis involving the hepatic flexure and this has involve the adjacent gallbladder. I would like to get a HIDA scan to determine if he does have acute cholecystitis. We will begin him on broad-spectrum antibiotics. Hopefully we can avoid an operation. His white blood cell count is elevated there was procalcitonin is normal. His liver function tests however are completely normal which is a little unusual for acute cholecystitis. Will continue his antidepressant medicines. Will hydrate with IV fluids.
[2019-10-26] MEDS: LACTATED RINGERS 1,000 ML 125 ML IV ×3 (09:40→22:18)
[2019-10-26] MEDS: ENOXAPARIN 40 MG/0.4 ML SYRINGE SUBCUT (10:38)
[2019-10-26] MEDS: PANTOPRAZOLE 40 MG VIAL IV (10:38)
[2019-10-26] MEDS: PIPERACILLIN-TAZO 3.375 GM/50 ML FROZ.PIGGY IV ×3 (10:38→22:18)
[2019-10-26] MEDS: KETOROLAC 30 MG/ML VIAL IV ×3 (10:50→22:18)
--- NOTE | 2019-10-26 14:08 | PC.NURSE ---
Admit Note Patient arrived to room 223 from ER via wheelchair at 1000, able to walk to bed, steady on feet. Reported Toradol and Zofran effective for pain control and nausea. Denies nausea. Reports minor pain to right upper abdomen but declines further medication. Valuables locked up in safe, home meds sent to pharmacy for lockup. Oriented to room, plan of care, and to call light/bed/tv controls. Call light within reach. Taken down to [facility] med via wheelchair for HIDA scan at 1245.
[2019-10-26] MEDS: HYDROMORPHONE 1 MG INJ IV (22:25)
[2019-10-27] VITALS (7 sets, daily range): BP systolic 102–122; BP diastolic 52–63; PULSE 81–86; RESP 16–18; TEMP 36.9–38.2; O2SAT 91–95
[2019-10-27] MEDS: PIPERACILLIN-TAZO 3.375 GM/50 ML FROZ.PIGGY IV ×2 (04:45→09:03)
[2019-10-27] MEDS: HYDROMORPHONE 1 MG INJ IV (04:46)
[2019-10-27 04:56] LABS: Add Manual Diff / Slide Review NO; Basophils Absolute Auto 100 /uL (0-100); Basophils Percent Auto 0.3 % (0-2); Eosinophils Absolute Auto 0 /uL (0-450); Hematocrit 37.8 % (41-53); Lymphocytes Absolute Auto 1800 /uL (1100-4500); Lymphocytes Percent Auto 8.3 % (25-40); Mean Corpuscular HGB Conc 34.4 % (30-36); Mean Corpuscular Hemoglobin 29.6 PG (26-34); Monocytes Absolute Auto 2500 /uL (0-900); Monocytes Percent Auto 11.4 % (3-14); Neutrophils Absolute Auto 17800 /uL (1500-7000); Platelet Count 291 X10^3/uL (150-400); Red Cell Distribution Width 12.7 % (11.6-14.8); White Blood Cell Count 22.3 X10^3/uL (4.5-11.0)
[2019-10-27 04:59] LABS: Alanine Aminotransferase 19 IU/L (<50); Albumin 4.3 g/dL (3.5-5.0); Albumin Globulin Ratio 1.2 (1.0-2.8); Alkaline Phosphatase 88 U/L (38-126); Aspartate Aminotransferase 38 IU/L (17-59); Bilirubin Total 1.8 mg/dL (0.2-1.3); Blood Urea Nitrogen 11 mg/dL (9-20); Calcium 9.4 mg/dL (8.4-10.2); Carbon Dioxide 31 mmol/L (22-32); Chloride 100 mmol/L (98-107); Estimated Glomerular Filt Rate > 60.0 mL/min (>60); Globulin 3.5 g/dL (1.7-4.1); Glucose 103 mg/dL (70-100); HEMOLYSIS < 15 (0-50); Potassium 3.8 mmol/L (3.4-5.1); Sodium 139 mmol/L (137-145); Total Protein 7.8 g/dL (6.3-8.2)
--- NOTE | 2019-10-27 06:38 | PC.NURSE ---
Patient voided 100 mL of clear vaibhav/concentrated urine. Bladder scan showing approximately 300 mL. Patient declines to attempt to void again at this time and declines any other intervention. Patient slept majority of shift after being medicated with Dilaudid for pain 01/18 to RUQ. Denies N/V.
[2019-10-27] MEDS: PANTOPRAZOLE 40 MG VIAL IV (08:58)
--- NOTE | 2019-10-27 11:08 | PM.PN.1 ---
Subjective Subjective Date Patient Seen: 10/27/19 Time Patient Seen: 11:08 Interval history: No acute events overnight. Pt had HIDA scan last evening which is c/w cholecystitis. He feels his pain is somewhat better, but he c/o focal RUQ pain when he takes a deep breath, moves around in the bed or walks around. He denies nausea/vomiting. Exam Vital Signs (past 8 hours): - 10/27/19 04:30 10/27/19 08:00 Temperature 98.9 F 99.4 F Pulse Rate 85 86 Respiratory Rate 18 16 Blood Pressure 122/61 102/52 L Pulse Oximetry 93 95 Oxygen Delivery Method Room Air Oxygen Flow Rate 0 Narrative Exam Narrative: GENERAL: Alert, moderately uncomfortable, moderatly obese. Appears stated age. Answers questions promptly and appropriately. Vital signs noted. HENT: Normocephalic, atraumatic. Hearing intact. Oral mucosa is pink and moist. EYES: Conjunctiva pink, sclera white, no periorbital swelling. CARDIOVASCULAR: Regular rate. No pedal edema. RESPIRATORY: Non-tachypneic, breathing comfortably on room air. GASTROINTESTINAL: Abdomen soft; focal RUQ TTP, no flank tenderness, no abdominal bloating, non-tender in all other quadrants GENITALURINARY: No flank tenderness. MUSCULOSKELETAL: Equal tone and mass bilaterally. SKIN: Warm, dry, soft, appropriate color for ethnicity. No other lesions, rashes, or wounds. NEURO: Alert and Oriented X 3. No gross sensory deficits, or cognitive issues. PSYCH: Appropriate affect and mood. Objective Imaging HIDA scan: My impression: Gall bladder doesn't fill; CBD not obstructed Radiologist's impression: PROCEDURE: NM HIDA NO EJECTION FRACTION RADIOPHARMACEUTICAL: 5.2 mCi Tc-99m mebrofenin IV. INDICATIONS: abnormal CT r/o acalculus cholecystitis TECHNIQUE: Following intravenous administration of Tc-99m mebrofenin, sequential anterior abdominal images were obtained through at least 60 minutes. COMPARISON: [facility], CT, CT ABDOMEN PELVIS W CON, 10/26/2019, 7:45. FINDINGS: There is normal tracer uptake and excretion by the liver. There is normal visualization of intrahepatic ducts and common bile duct. There is absence of radiotracer activity in the gallbladder up to 120 minutes after administration There is normal tracer excretion into duodenum. IMPRESSION: Absence of radiotracer uptake in the gallbladder consistent with acute cholecystitis. Labs Result Diagrams: 10/27/19 04:35 10/27/19 04:35 Labs: Laboratory Results - last 24 hr 10/27/19 10/27/19 04:35 04:35 WBC 22.3 H RBC 4.40 L Hgb 13.0 L Hct 37.8 L MCV 86.0 MCH 29.6 MCHC 34.4 RDW 12.7 Plt Count 291 Neut % (Auto) 80.0 H Lymph % (Auto) 8.3 L [place] % (Auto) 11.4 Eos % (Auto) 0.0 L Baso % (Auto) 0.3 Neut # (Auto) 93439 H Lymph # (Auto) 1800 [place] # (Auto) 2500 H Eos # (Auto) 0 Baso # (Auto) 100 Sodium 139 Potassium 3.8 Chloride 100 Carbon Dioxide 31 BUN 11 Creatinine 0.92 Estimated GFR > 60.0 BUN/Creatinine Ratio 12.0 Glucose 103 H Calcium 9.4 Total Bilirubin 1.8 H AST 38 ALT 19 Alkaline Phosphatase 88 Total Protein 7.8 Albumin 4.3 Globulin 3.5 Albumin/Globulin Ratio 1.2 Assessment & Plan Assessment and plan (1) Atypical chest pain: Current visit: No Status: Acute (2) Colitis: Current visit: Yes Status: Acute (3) Depression: Current visit: No Status: Acute (4) Cholecystitis: Current visit: Yes Status: Acute (5) Hyperbilirubinemia: Current visit: Yes Status: Acute (6) Obesity: Current visit: Yes Status: Acute Assessment & Plan narrative: This is a 34 yo man with six days of symptoms beginning with retrosternal chest pain, which is now focal in the RUQ and worse on inspiration. He had some nausea and vomiting initially, but denies it now. His WBC continues to go up in spite of getting Zosyn. He is on 3.375gm Q6. His left shift is improving, but WBC continues to go up. He feels his pain is slightly improved, but he still has RUQ tenderness and pain on inspiratory effort. His HIDA scan is c/w cholecystitis, but his CT scan looks like he has a lot of local inflammation of the colon. Plan: NPO except for water and ice chips Increase zosyn dose to 4.5gm Q6 plan for lap/possible open cholecystectomy as soon as covid test is resulted COVID 19 testing per pre op protocol Repeat CBC/CMP this PM Ambulate as tolerated TID IS frequently hold DVT ppx for pending OR Time Spent With Patient Time with patient: 25 - 35 minutes Quality VTE Deep Vein Thrombosis/Pulmonary Embolism Present on Admission: No
--- NOTE | 2019-10-27 11:39 | PC.NURSE ---
Day shift note: Patient awake, alert, and pleasant. Encouraged ambulation in room while awake, steady gait to BR. IS teaching performed, demonstrated technique and use, verbalized understanding of importance. SCDs in place while sleeping, or resting in bed. IVF infusing, voiding in urinal. Tolerating ice chips and water, no nausea. COVID-19 sent out at 1015, isolation precautions initiated. Tenderness with light palpation to Right upper quadrant, abdomen round, active BS. Calls appropriately for staff assist. Dr. Mancilla at bedside this am. Patient in contact with family via hospital phone.
--- NOTE | 2019-10-27 13:03 | CM.IDA ---
Initial DCP Assessment Note: Pt is a 34 yo male, resident of [facility]. Pt scheduled for surgery to remove his gallbladder once COVID-19 test results are back, sent at 1015 this AM PCP: None listed Payer: Modality Met w/pt this morning, introduced role. Pt is an otherwise healthy and active person, lives alone but plans to have his mother help him during recovery. No needs from DC planning team at this time. Will follow closely in case DC needs or concerns arise. P: DC home w/family once medically cleared KRISTINA Chester Discharge Planning/Care Management CM Discharge Assessment Start: 10/27/19 12:59 Freq: Status: Active Protocol: Document 10/27/19 12:59 BARRETT (Rec: 10/27/19 13:03 BARRETT [id number]) Discharge Planning Assessment Assigned Operations Support Specialist KRISTINA Hamlin DPOA/Assigned Designee Name mother [place] Contact Information [phone] Advance Directives? No Advance Directives on File No History Provided By Patient Prior Living Arrangements Apartment/Condo Household Members none Type of transporation used prior to Drives own vehicle admit Willing to Return to Facility? No Independent with ADL's Yes Is patient alert and oriented? Yes Barriers to Discharge No Discharge Plan Home Transportation Arrangement Family Referrals Initiated None needed Whiteboard Updated in Patient Room with Yes name and ext. # of Operations Support Specialist Review Status In Process
[2019-10-27 14:30] LABS: Add Manual Diff / Slide Review NO; Basophils Absolute Auto 100 /uL (0-100); Basophils Percent Auto 0.6 % (0-2); Eosinophils Absolute Auto 0 /uL (0-450); Eosinophils Percent Auto 0.1 % (2-4); Hematocrit 35.7 % (41-53); Hemoglobin 12.1 g/dL (13.5-17.5); Lymphocytes Absolute Auto 1700 /uL (1100-4500); Lymphocytes Percent Auto 9.3 % (25-40); Mean Corpuscular Hemoglobin 29.4 PG (26-34); Mean Corpuscular Volume 86.5 fL (80-100); Monocytes Absolute Auto 1800 /uL (0-900); Monocytes Percent Auto 9.9 % (3-14); Neutrophils Absolute Auto 14700 /uL (1500-7000); Neutrophils Percent Auto 80.1 % (50-75); Platelet Count 285 X10^3/uL (150-400); Red Blood Cell Count 4.13 X10^6/uL (4.5-5.9); Red Cell Distribution Width 12.6 % (11.6-14.8); White Blood Cell Count 18.4 X10^3/uL (4.5-11.0)
[2019-10-27] MEDS: PIPERACILLIN-TAZO 4.5 GM/100 ML FROZ.PIGGY IV ×2 (14:37→20:23)
[2019-10-27 14:41] LABS: Alanine Aminotransferase 23 IU/L (<50); Albumin 4.1 g/dL (3.5-5.0); Albumin Globulin Ratio 1.2 (1.0-2.8); Alkaline Phosphatase 94 U/L (38-126); Aspartate Aminotransferase 43 IU/L (17-59); BUN Creatinine Ratio 13.8 (6-22); Bilirubin Total 1.5 mg/dL (0.2-1.3); Blood Urea Nitrogen 12 mg/dL (9-20); Carbon Dioxide 28 mmol/L (22-32); Chloride 100 mmol/L (98-107); Estimated Glomerular Filt Rate > 60.0 mL/min (>60); Globulin 3.4 g/dL (1.7-4.1); Glucose 108 mg/dL (70-100); HEMOLYSIS < 15 (0-50); Potassium 3.5 mmol/L (3.4-5.1); Sodium 137 mmol/L (137-145); Total Protein 7.5 g/dL (6.3-8.2)
[2019-10-27] MEDS: LACTATED RINGERS 1,000 ML 125 ML IV (14:42)
[2019-10-27] MEDS: KETOROLAC 30 MG/ML VIAL IV (15:56)
[2019-10-27] MEDS: ACETAMINOPHEN 325 MG TABLET 650 MG PO (20:23)
[2019-10-27 21:23] LABS: COVID19 Sendout Not Detected (Not Detect)
[2019-10-28] VITALS (24 sets, daily range): BP systolic 96–137; BP diastolic 53–77; PULSE 70–104; RESP 16–24; TEMP 36.4–38.1; O2SAT 92–96; BMI 35.0
--- NOTE | 2019-10-28 | PATH_ITS ---
[facility] Accession Number: [id number] . 01 Material submitted: . gallbladder - GALLBLADDER AND CONTENTS . 01 Clinical history: . VOMITING . 02 Diagnosis: Gallbladder And Contents, Cholecystectomy: Predominantly necrotic gallbladder with chronic active cholecystitis. Cholelithiasis. Rare fungal hyphae seen in superficial mucosa. No evidence of neoplasm. I 11/01/2019 1323 Local . 02 Comment: The preliminary findings in this case were reported to Dr. Mancilla via her medical authorization specialist Delfina by Dr. Bauer on 11/01/19 at 10:10 a.m. . . . . 02 Electronically signed: . Rj Bauer MD, PhD, Pathologist NPI- [id number] . 01 Gross description: . Received in formalin, labeled gallbladder and contents, is an intact gallbladder (length-9.8 cm, diameter-4.6 cm) with sinclair-brown smooth and shiny serosa and a patent cystic duct. No lymph nodes are identified. The lumen contains brown watery bile and multiple menjivar-yellow gritty friable calculi (5.5 x 2.0 x 0.5 cm in aggregate). The mucosa is brown smooth and flat. The wall is up to 0.1 cm thick. No nodules, masses or lesions are identified. Section code: (A1) cystic duct resection margin and two serial sections from the body; (A2) two longitudinal sections from the fundus. ([id number]) /[facility] 10/31/2019 1127 Local . 02 Pathologist provided ICD-10: K80.60 . 02 CPT . 124148 Performed at: [address] [facility], [place], [place] [id number] MD Remy Jj MD Phone: [phone] Performed at: 02 [facility] [address] [place] [id number] MD Brynn Min MD Phone: [phone]
[2019-10-28] MEDS: LACTATED RINGERS 1,000 ML 125 ML IV ×4 (00:30→22:13)
[2019-10-28] MEDS: PIPERACILLIN-TAZO 4.5 GM/100 ML FROZ.PIGGY IV ×4 (03:02→20:05)
[2019-10-28 05:54] LABS: Add Manual Diff / Slide Review NO; Basophils Absolute Auto 0 /uL (0-100); Basophils Percent Auto 0.3 % (0-2); Eosinophils Absolute Auto 0 /uL (0-450); Lymphocytes Absolute Auto 1700 /uL (1100-4500); Lymphocytes Percent Auto 12.8 % (25-40); Mean Corpuscular HGB Conc 34.2 % (30-36); Mean Corpuscular Hemoglobin 29.4 PG (26-34); Monocytes Absolute Auto 1300 /uL (0-900); Monocytes Percent Auto 9.7 % (3-14); Neutrophils Absolute Auto 10400 /uL (1500-7000); Neutrophils Percent Auto 77.2 % (50-75); Platelet Count 281 X10^3/uL (150-400); Red Blood Cell Count 4.08 X10^6/uL (4.5-5.9); Red Cell Distribution Width 12.6 % (11.6-14.8); White Blood Cell Count 13.4 X10^3/uL (4.5-11.0)
[2019-10-28 06:05] LABS: Alanine Aminotransferase 18 IU/L (<50); Albumin Globulin Ratio 1.1 (1.0-2.8); Alkaline Phosphatase 93 U/L (38-126); Aspartate Aminotransferase 33 IU/L (17-59); Bilirubin Total 1.2 mg/dL (0.2-1.3); Blood Urea Nitrogen 10 mg/dL (9-20); Calcium 9.1 mg/dL (8.4-10.2); Carbon Dioxide 29 mmol/L (22-32); Chloride 101 mmol/L (98-107); Estimated Glomerular Filt Rate > 60.0 mL/min (>60); Globulin 3.5 g/dL (1.7-4.1); Glucose 89 mg/dL (70-100); HEMOLYSIS < 15 (0-50); Potassium 3.3 mmol/L (3.4-5.1); Sodium 137 mmol/L (137-145); Total Protein 7.5 g/dL (6.3-8.2)
--- NOTE | 2019-10-28 06:50 | P.PN_ITS ---
Subjective Subjective Date Patient Seen: 10/28/19 Time Patient Seen: 06:50 Interval history: No acute events overnight. Pt feeling somewhat better, but still quite tender. He is concerned about possible recurrence of his cholecystitis and wants to go ahead with cholecystectomy. Exam Vital Signs (past 8 hours): - 10/28/19 00:00 10/28/19 00:59 10/28/19 04:57 Temperature 97.6 F 98.7 F Pulse Rate 70 93 H Respiratory Rate 16 16 Blood Pressure 96/53 L 137/71 Pulse Oximetry 93 93 94 Oxygen Delivery Method Room Air Oxygen Flow Rate 0 Narrative Exam Narrative: GENERAL: Alert, relatively comfortable, moderatly obese. Appears stated age. Answers questions promptly and appropriately. Vital signs noted. HENT: Normocephalic, atraumatic. Hearing intact. Oral mucosa is pink and moist. EYES: Conjunctiva pink, sclera white, no periorbital swelling. CARDIOVASCULAR: Regular rate. No pedal edema. RESPIRATORY: Non-tachypneic, breathing comfortably on room air. GASTROINTESTINAL: Abdomen soft; focal RUQ TTP, no flank tenderness, no abdominal bloating, non-tender in all other quadrants GENITALURINARY: No flank tenderness. MUSCULOSKELETAL: Equal tone and mass bilaterally. SKIN: Warm, dry, soft, appropriate color for ethnicity. No other lesions, rashes, or wounds. NEURO: Alert and Oriented X 3. No gross sensory deficits, or cognitive issues. PSYCH: Appropriate affect and mood. Objective Labs Result Diagrams: 10/28/19 05:28 10/28/19 05:28 Labs: Laboratory Results - last 24 hr 10/27/19 10/27/19 10/27/19 09:43 14:18 14:18 WBC 18.4 H RBC 4.13 L Hgb 12.1 L Hct 35.7 L MCV 86.5 MCH 29.4 MCHC 34.0 RDW 12.6 Plt Count 285 Neut % (Auto) 80.1 H Lymph % (Auto) 9.3 L [place] % (Auto) 9.9 Eos % (Auto) 0.1 L Baso % (Auto) 0.6 Neut # (Auto) 14779 H Lymph # (Auto) 1700 [place] # (Auto) 1800 H Eos # (Auto) 0 Baso # (Auto) 100 Sodium 137 Potassium 3.5 Chloride 100 Carbon Dioxide 28 BUN 12 Creatinine 0.87 Estimated GFR > 60.0 BUN/Creatinine Ratio 13.8 Glucose 108 H Calcium 9.0 Total Bilirubin 1.5 H AST 43 ALT 23 Alkaline Phosphatase 94 Total Protein 7.5 Albumin 4.1 Globulin 3.4 Albumin/Globulin Ratio 1.2 COVID-19 PCR Not detected 10/28/19 10/28/19 05:28 05:28 WBC 13.4 H RBC 4.08 L Hgb 12.0 L Hct 35.0 L MCV 86.0 MCH 29.4 MCHC 34.2 RDW 12.6 Plt Count 281 Neut % (Auto) 77.2 H Lymph % (Auto) 12.8 L [place] % (Auto) 9.7 Eos % (Auto) 0.0 L Baso % (Auto) 0.3 Neut # (Auto) 01508 H Lymph # (Auto) 1700 [place] # (Auto) 1300 H Eos # (Auto) 0 Baso # (Auto) 0 Sodium 137 Potassium 3.3 L Chloride 101 Carbon Dioxide 29 BUN 10 Creatinine 0.77 Estimated GFR > 60.0 BUN/Creatinine Ratio 13.0 Glucose 89 Calcium 9.1 Total Bilirubin 1.2 AST 33 ALT 18 Alkaline Phosphatase 93 Total Protein 7.5 Albumin 4.0 Globulin 3.5 Albumin/Globulin Ratio 1.1 COVID-19 PCR Assessment & Plan Assessment and plan (1) Obesity: Current visit: Yes Status: Acute (2) Cholecystitis: Current visit: Yes Status: Acute (3) Colitis: Current visit: Yes Status: Acute Assessment & Plan narrative: This is a 34 yo man with acute cholecystitis. We held off on going to the OR yesterday because his CV19 test was pending. Today his test is negative. He continues to have pain and tenderness although it has improved somewhat. The risks and benefits of laparoscopic possible open cholecystectomy were discussed with the patient. Risks of bleeding, infection, need for open surgery, bile duct injury, need for transfer to tertiary care, need for additional procedures, bile leak, risks of anesthesia were discussed and the patient desires to proceed with surgery. Plan: Proceed to OR this AM for lap, possible open cholecystectomy Time Spent With Patient Time with patient: 15-24 minutes Quality VTE Deep Vein Thrombosis/Pulmonary Embolism Present on Admission: No
--- NOTE | 2019-10-28 07:41 | PC.NURSE ---
Day shift: Pt off unit for surgery at approx 0740.
[2019-10-28] MEDS: LACTATED RINGERS 1,000 ML 42 ML IV (08:00)
--- NOTE | 2019-10-28 09:03 | SUR.OPER ---
Supine on padded OR bed, head on pillow, arms secured on padded arm boards at <90 degrees abduction, legs uncrossed, safety belt at thigh, tape over blanket over lower legs.
[2019-10-28] MEDS: BUPIVACAINE 0.25% W/ EPI 30 ML VIAL 60 ML INJ (09:23)
--- NOTE | 2019-10-28 10:44 | PC.NURSE ---
Day shift: Pt remains not on AC unit at this time.
--- NOTE | 2019-10-28 12:20 | PM.OP.1 ---
Operative Date/Time/Diagnoses Date of procedure: 10/28/19 Time of procedure: 12:20 Pre-op diagnosis: Acute cholecystitis, obstructed cystic duct Post-op diagnosis: other (gangrenous cholecystitis, perforated gall bladder) Procedure & Clinicians Procedure: Laparoscopic cholecystectomy with prolonged dissection due to patient disease, [id number] Same procedure as scheduled: Yes Indications: This is a 34 yo man who presented with atypical chest pain and elevated WBC. His CT scan showed a thickened and inflamed colon, and a distended gall bladder. HIDA scan was consistent with acute cholecystitis. Surgeon: Ramona Mancilla Click Yes if Unassisted: Yes Anesthesia Type: General Operative Notes Findings: Fully gangrenous gall bladder, perforated infundibulum with a surrounding pool of dark bile, socked in with heavily thickened omentum, scattered gall stones and sludge Specimen(s): other (gall bladder) Applied: drain(s) (ROWAN drain) Estimated Blood Loss (mL): 15 Procedure in detail: The patient was brought into the operating room and placed supine on the OR table. Sequential compression devices were placed on both legs and turned on. Appropriate perioperative antibiotics were given prior to the start of surgery. General anesthesia was induced the patient was intubated. The abdomen was prepped and draped in sterile fashion. Surgical time-out was conducted. Local anesthetic was injected under the skin just superior to the umbilicus and a 5 mm vertical incision was made at this site. The umbilical stalk was grasped with a Jaxon and elevated. A Veress needle was passed through the fascia into proper position. The position was tested with a saline drop test which was appropriate for intra-abdominal Veress needle placement. The abdomen was then insufflated in the usual fashion. Once insufflated to 15 mm Hg the Veress needle was removed and a 5 mm optical trocar was placed under direct vision using a 5 mm 30 degree scope. Once the camera was inside the abdomen I took a look around. There was no injury from port placement. Two additional ports were placed in a similar fashion in the right upper quadrant and a 10 mm port was placed in the epigastrium. Densely adherent omentum was seen overlying the liver and adherent to the abdominal wall in the right upper quadrant. The omentum was freed from the abdominal wall and liver with gentle traction. Once the omentum was pulled down, the gall bladder was revealed with a surrounding pool of dark bile. I suctioned the bile away and rinsed over top of the liver. Over the liver dome were sticky inflammatory adhesions which were bile stained, adherent to the diaphragm. I used a laparoscopic needle on a syringe through the epigastric port to decompress the gall bladder. Once decompressed, I was able to grasp the gall bladder and elevated it. The gall bladder hilum was socked in with densely adherent inflammatory rind. Because the hilar structures were not clearly visible, I elected to take the gall bladder from the top down. I grasped and elevated the gall bladder, and carefully dissected it off of the liver from the dome to the infundibulum. The gall bladder was densely adherent to the liver. Prolonged tedious dissection was required to avoid injury to the liver, or to the hilar biliary and vascular structures. This required an extra hour of operative time and an increased level of skill, difficulty and risk to complete the operation safely for this patient. As I freed the gall bladder, I was gradually able to elevate it and safely identify the hilar structures as I came down to the infundibulum. At this point, the structures were carefully dissected to avoid injury to the ducts or uncontrolled bleeding. This required an additional hour of operative time to complete the procedure safely. The entire gall bladder was gangrenous, but the infundibulum itself was found to be the source of perforation. As I carefully freed the gall bladder down to its infundibulum, after prolonged tedious dissection, I was finally able to identify the cystic artery and I placed two clips on the patient side and divided it on the gall bladder side using cautery. A modifier 22 will be included for this case because two additional hours of operative time for prolonged and tedious dissection due to patient disease. Once the cystic artery was freed, I was able to lift the gall bladder and identify an intact cystic duct just proximal to the perforated and gangrenous infundibulum. I dropped two PDS endoloops at the junction of the infundibulum and cystic duct, and secured them snuggly. I then divided the gall bladder, leaving a small stump of infundibulum distal to the endoloops. The gall bladder was placed inside an Endo-Catch bag and removed through the epigastric port site. I did have to enlarge the epigastric site in order to get the gallbladder out. Once it was out and passed off to the back table I then took another look inside the abdomen. I irrigated with two liters of saline, and suctioned clean any remaining blood or fluid on the lateral side of the liver and in the subhepatic space. I placed a 19 round radha drain through the right lateral port site, and positioned it in the subhepatic space. I secured it to the abdominal wall with a 3-0 nylon suture. There was no active bleeding or leaking of bile from the gallbladder fossa or from the clipped stump of the cystic artery and endolooped cystic duct. At this point the insufflation was removed from the abdomen and the epigastric port site was closed with 0 Vicryl suture in the fascia, 3 O Vicryl in the subcutaneous layers, and 4 Monocryl in the skin. The remaining port sites were closed with 4 Monocryl in the skin. Each port site was sealed with steri strips. Local anesthetic was given at each of the port sites and in the fascia. This concluded the procedure. At this point the needle sponge and instrument counts were correct. The gallbladder was passed off the table for pathology. Patient was awakened from anesthesia and extubated. She was transferred to the postanesthesia care unit in stable condition. Complications: none Post-operative Condition: stable Disposition: PACU Plan for aftercare: Transfer to floor, IV antibiotics for 24 hours post op, ROWAN drain management, advance diet as tolerated
[2019-10-28] MEDS: ONDANSETRON 4 MG/2 ML INJ IV (12:21)
[2019-10-28] MEDS: METOCLOPRAMIDE 10 MG/2 ML INJ IV (12:29)
--- NOTE | 2019-10-28 12:48 | PC.NURSE ---
Day shift: Back on AC unit at approx 1300. VS ok. Placed on 2L NC. SpO2 90% on RA. VS WNL. Pt is tired and drowsy. Will continue to monitor. Bed alarm is on and on cont O2 monitor.
--- NOTE | 2019-10-28 12:54 | SUR.PHASEI ---
PT TRANSFERRED TO ACUTE CARE FLOOR IN STABLE CONDITION. PT RESTING WITH EYES CLOSED, EASILY AROUSABLE TO VOICE WHEN SPOKEN TO. BEDSIDE REPORT GIVEN TO VALERIA BRUMFIELD ON ACUTE CARE FLOOR UPON ARRIVAL TO ROOM. DRSG OBSERVED TO BE C/D/I. TRANSFERRED CARE OF PT TO VALERIA BRUMFIELD AT THAT TIME IN STABLE CONDITION.
--- NOTE | 2019-10-28 12:58 | PC.NURSE ---
Day shift: lap sites CDI. Amos drain site patent lucy approx 25ml of sersang prestn in drain.
[2019-10-28] MEDS: PANTOPRAZOLE 40 MG VIAL IV (13:07)
--- NOTE | 2019-10-28 19:36 | PC.NURSE ---
radha drain drg. became saturated and leaking sang. fluid. Drg. change was tolerated well, the drain was completely full and this could have been a result of the leak, no leaking was noted during dressing change. See charting for drainage amount.
[2019-10-28] MEDS: KETOROLAC 30 MG/ML VIAL IV (20:05)
[2019-10-28] MEDS: ACETAMINOPHEN 325 MG TABLET 650 MG PO (20:06)
[2019-10-29] MEDS: ACETAMINOPHEN 325 MG TABLET 650 MG PO ×2 (01:53→21:02)
[2019-10-29] MEDS: PIPERACILLIN-TAZO 4.5 GM/100 ML FROZ.PIGGY IV ×4 (02:56→21:02)
[2019-10-29 05:09] LABS: Add Manual Diff / Slide Review NO; Basophils Absolute Auto 100 /uL (0-100); Basophils Percent Auto 0.4 % (0-2); Eosinophils Absolute Auto 0 /uL (0-450); Hematocrit 29.9 % (41-53); Hemoglobin 10.3 g/dL (13.5-17.5); Lymphocytes Absolute Auto 1100 /uL (1100-4500); Lymphocytes Percent Auto 7.5 % (25-40); Mean Corpuscular HGB Conc 34.5 % (30-36); Mean Corpuscular Hemoglobin 29.5 PG (26-34); Mean Corpuscular Volume 85.3 fL (80-100); Monocytes Absolute Auto 800 /uL (0-900); Monocytes Percent Auto 5.8 % (3-14); Neutrophils Absolute Auto 12400 /uL (1500-7000); Neutrophils Percent Auto 86.3 % (50-75); Platelet Count 278 X10^3/uL (150-400); Red Blood Cell Count 3.51 X10^6/uL (4.5-5.9); Red Cell Distribution Width 12.6 % (11.6-14.8); White Blood Cell Count 14.4 X10^3/uL (4.5-11.0)
[2019-10-29 05:10] VITALS: BP 109/57; PULSE 77; RESP 16; TEMP 36.8; O2SAT 96
[2019-10-29 05:37] LABS: Alanine Aminotransferase 24 IU/L (<50); Albumin 3.6 g/dL (3.5-5.0); Albumin Globulin Ratio 1.1 (1.0-2.8); Alkaline Phosphatase 81 U/L (38-126); Aspartate Aminotransferase 46 IU/L (17-59); BUN Creatinine Ratio 14.3 (6-22); Bilirubin Total 0.5 mg/dL (0.2-1.3); Blood Urea Nitrogen 10 mg/dL (9-20); Calcium 8.6 mg/dL (8.4-10.2); Carbon Dioxide 27 mmol/L (22-32); Chloride 105 mmol/L (98-107); Estimated Glomerular Filt Rate > 60.0 mL/min (>60); Globulin 3.3 g/dL (1.7-4.1); Glucose 138 mg/dL (70-100); HEMOLYSIS < 15 (0-50); Potassium 3.2 mmol/L (3.4-5.1); Sodium 140 mmol/L (137-145); Total Protein 6.9 g/dL (6.3-8.2)
[2019-10-29] MEDS: LACTATED RINGERS 1,000 ML 125 ML IV (07:04)
--- NOTE | 2019-10-29 07:42 | P.PN_ITS ---
Subjective Subjective Date Patient Seen: 10/29/19 Time Patient Seen: 07:42 Interval history: No acute overnight events. Tolerated clear liquid diet without nausea or vomiting. Continues to have a significant amount of right upper quadrant pain having some difficulty getting in and out of bed. Exam Vital Signs (past 8 hours): - 10/28/19 23:45 10/29/19 05:10 Temperature 98.5 F 98.2 F Pulse Rate 72 77 Respiratory Rate 16 16 Blood Pressure 103/58 L 109/57 L Pulse Oximetry 96 96 Oxygen Delivery Method Room Air Oxygen Flow Rate 0 Narrative Exam Narrative: General adult male alert oriented no acute distress Abdomen right upper quadrant drain serosanguineous with bile tinging, right upper quadrant tenderness no peritonitis Objective Labs Result Diagrams: 10/29/19 04:57 10/29/19 04:57 Labs: Laboratory Results - last 24 hr 10/29/19 10/29/19 04:57 04:57 WBC 14.4 H RBC 3.51 L Hgb 10.3 L Hct 29.9 L MCV 85.3 MCH 29.5 MCHC 34.5 RDW 12.6 Plt Count 278 Neut % (Auto) 86.3 H Lymph % (Auto) 7.5 L [place] % (Auto) 5.8 Eos % (Auto) 0.0 L Baso % (Auto) 0.4 Neut # (Auto) 32052 H Lymph # (Auto) 1100 [place] # (Auto) 800 Eos # (Auto) 0 Baso # (Auto) 100 Sodium 140 Potassium 3.2 L Chloride 105 Carbon Dioxide 27 BUN 10 Creatinine 0.70 Estimated GFR > 60.0 BUN/Creatinine Ratio 14.3 Glucose 138 H Calcium 8.6 Total Bilirubin 0.5 AST 46 ALT 24 Alkaline Phosphatase 81 Total Protein 6.9 Albumin 3.6 Globulin 3.3 Albumin/Globulin Ratio 1.1 Assessment & Plan Post-op Postoperative Procedures: Procedures Operation Date: 10/28/19 08:00 Actual Procedures Side Surgeon p Laparoscopic Cholecystectomy Ramona Mancilla MD Operation Date: 10/28/19 08:30 <No data on this case meets the specified criteria> Postoperative status narrative: 34-year-old man postoperative day 1 status post laparoscopic cholecystectomy for gangrenous cholecystitis. Afebrile white blood cell count 14, total bilirubin 0.5, normal LFTs. -advanced diet to low-fat -DC IV fluids -anticipate discharge home tomorrow if white blood cell count down trends and pain is better controlled -out of bed and ambulate Quality VTE Deep Vein Thrombosis/Pulmonary Embolism Present on Admission: No
[2019-10-29 08:20] VITALS: BP 120/69; PULSE 76; RESP 16; TEMP 37.2; O2SAT 97
[2019-10-29] MEDS: PANTOPRAZOLE 40 MG VIAL IV (08:47)
[2019-10-29] MEDS: VENLAFAXINE ER 75 MG CAP 150 MG PO (08:47)
--- NOTE | 2019-10-29 11:11 | PC.NURSE ---
Patient has 3 small incisions to lower abdomen with bandaides intact. All cdi, he also has a radha drain that is putting out minimal bloody drainage. Up with sba to use the bathroom. Moving well in the room.
[2019-10-29 11:29] VITALS: BP 123/59; PULSE 69; RESP 16; TEMP 37.1; O2SAT 98
[2019-10-29] MEDS: POTASSIUM CHLORIDE 20 MEQ TAB 80 MEQ PO (13:49)
[2019-10-29 15:34] VITALS: BP 118/71; PULSE 74; RESP 18; TEMP 36.6; O2SAT 98
--- NOTE | 2019-10-29 19:47 | PC.NURSE ---
1930 - Pt agreeable to ambulate in [place]. While ambulating education provided r/t dietary changes. Pt asking appropriate questions. Reports pain 5 of 10, mostly while getting out of bed. Educated to techniques for repositioning and splinting. Pt verbalized understanding and declines rx intervention. Monitor.
[2019-10-29 19:55] VITALS: BP 127/76; PULSE 81; RESP 18; TEMP 36.2; O2SAT 96
[2019-10-29 23:00] VITALS: O2SAT 95
[2019-10-30 00:10] VITALS: BP 111/70; PULSE 68; RESP 16; TEMP 36.9; O2SAT 95
--- NOTE | 2019-10-30 02:28 | PC.NURSE ---
Resumed care of patient, sleeping, respirations even, unlabored.
[2019-10-30] MEDS: SODIUM CHLORIDE 0.9% FLUSH 10 ML IV (02:55)
[2019-10-30] MEDS: PIPERACILLIN-TAZO 4.5 GM/100 ML FROZ.PIGGY IV (02:55)
[2019-10-30 04:15] VITALS: BP 114/73; PULSE 70; RESP 16; TEMP 36.6; O2SAT 95
[2019-10-30 05:23] LABS: Add Manual Diff / Slide Review NO; Basophils Absolute Auto 0 /uL (0-100); Basophils Percent Auto 0.4 % (0-2); Eosinophils Absolute Auto 0 /uL (0-450); Eosinophils Percent Auto 0.1 % (2-4); Hematocrit 28.3 % (41-53); Hemoglobin 9.8 g/dL (13.5-17.5); Lymphocytes Absolute Auto 2500 /uL (1100-4500); Lymphocytes Percent Auto 28.4 % (25-40); Mean Corpuscular HGB Conc 34.5 % (30-36); Mean Corpuscular Hemoglobin 29.9 PG (26-34); Mean Corpuscular Volume 86.5 fL (80-100); Monocytes Absolute Auto 800 /uL (0-900); Monocytes Percent Auto 8.5 % (3-14); Neutrophils Absolute Auto 5600 /uL (1500-7000); Neutrophils Percent Auto 62.6 % (50-75); Platelet Count 303 X10^3/uL (150-400); Red Blood Cell Count 3.27 X10^6/uL (4.5-5.9); Red Cell Distribution Width 12.8 % (11.6-14.8); White Blood Cell Count 8.9 X10^3/uL (4.5-11.0)
[2019-10-30 06:08] LABS: Alanine Aminotransferase 27 IU/L (<50); Albumin 3.3 g/dL (3.5-5.0); Alkaline Phosphatase 70 U/L (38-126); Aspartate Aminotransferase 42 IU/L (17-59); BUN Creatinine Ratio 19.4 (6-22); Bilirubin Total 0.3 mg/dL (0.2-1.3); Blood Urea Nitrogen 14 mg/dL (9-20); Calcium 8.4 mg/dL (8.4-10.2); Carbon Dioxide 26 mmol/L (22-32); Chloride 108 mmol/L (98-107); Estimated Glomerular Filt Rate > 60.0 mL/min (>60); Globulin 3.2 g/dL (1.7-4.1); Glucose 96 mg/dL (70-100); HEMOLYSIS < 15 (0-50); Potassium 3.3 mmol/L (3.4-5.1); Sodium 141 mmol/L (137-145); Total Protein 6.5 g/dL (6.3-8.2)
[2019-10-30 08:06] VITALS: BP 117/69; PULSE 66; RESP 16; TEMP 36.9; O2SAT 97
[2019-10-30 08:07] VITALS: O2SAT 94
--- NOTE | 2019-10-30 09:17 | PM.DS.1 ---
History of Present Illness History of Present Illness Date Patient Seen: 10/30/19 Time Patient Seen: 09:18 Chief complaint: vomiting Narrative: The patient is a 34-year-old who was in the emergency room yesterday with chest pain. He was evaluated and thought to have symptoms related to reflux and was sent home on from [facility] [place]. He vomited it and came back to the emergency room with pain in the right upper quadrant. Pain increases with movement. It is a dull ache. He also cuts off is breathing when he tries to take a deep breath. He has not had this before. He does have occasional nausea over time. He has had no prior abdominal operations. (Actually he has had no operations at all) Discharge Providers Provider Date of admission: 10/26/19 09:14 Discharge Date: 10/30/19 Consults: 10/26/19 09:33 Consult to Discharge Planning Routine Comment: Discharge provider: Arthur Nino MD Summary Hospital Course Discharge Diagnosis: Gangrenous cholecystitis Hospital Course: Patient presented to the emergency room 10/25with epigastric pain underwent a CT scan which demonstrated inflammation in the right upper quadrant unclear whether was colitis versus acute cholecystitis. He was admitted and received IV fluid resuscitation and broad-spectrum antibiotics any subsequently had a HIDA scan which demonstrated acute cholecystitis. He underwent a laparoscopic cholecystectomy 10/27 which demonstrated gangrenous cholecystitis. He stayed until postoperative day 2 for pain control and to ensure that his leukocytosis resolved. On the date of discharge he is doing well he is tolerating a regular diet he is ambulating white blood cell count is normal pain is well controlled Status at Discharge Cognitive/behavioral status at discharge: oriented Functional status at discharge: independent ambulation Overall status at discharge: patient is back to baseline Time Spent with Patient Time spent: Greater than 30 minutes Exam Vital Signs (past 8 hours): - 10/30/19 04:15 10/30/19 08:06 10/30/19 08:07 Temperature 97.9 F 98.5 F Pulse Rate 70 66 Respiratory Rate 16 16 Blood Pressure 114/73 117/69 Pulse Oximetry 95 97 94 Oxygen Delivery Method Room Air Oxygen Flow Rate 0 Narrative Exam Narrative: General adult male alert oriented no acute distress Abdomen soft appropriately tender to palpation incisions clean dry intact with Steri-Strips. Drain right upper quadrant with serosanguineous output no bile Objective Labs Result Diagrams: 10/30/19 05:13 10/30/19 05:13 Labs: Laboratory Results - last 24 hr 10/30/19 10/30/19 05:13 05:13 WBC 8.9 RBC 3.27 L Hgb 9.8 L Hct 28.3 L MCV 86.5 MCH 29.9 MCHC 34.5 RDW 12.8 Plt Count 303 Neut % (Auto) 62.6 D Lymph % (Auto) 28.4 D [place] % (Auto) 8.5 Eos % (Auto) 0.1 L Baso % (Auto) 0.4 Neut # (Auto) 5600 Lymph # (Auto) 2500 [place] # (Auto) 800 Eos # (Auto) 0 Baso # (Auto) 0 Sodium 141 Potassium 3.3 L Chloride 108 H Carbon Dioxide 26 BUN 14 Creatinine 0.72 Estimated GFR > 60.0 BUN/Creatinine Ratio 19.4 Glucose 96 Calcium 8.4 Total Bilirubin 0.3 AST 42 ALT 27 Alkaline Phosphatase 70 Total Protein 6.5 Albumin 3.3 L Globulin 3.2 Albumin/Globulin Ratio 1.0 Discharge Plan Discharge Plan Patient Disposition: Home Discharge orders & Medications Prescriptions: New ibuprofen 200 mg tablet 800 mg PO Q6H PRN (Reason: pain) Qty: 60 RF: 0 oxycodone 5 mg tablet 5 mg PO Q6H PRN (Reason: pain) Qty: 30 RF: 0 ondansetron HCl [Zofran] 4 mg tablet 4 mg PO Q8H Qty: 14 RF: 0 Continued venlafaxine 150 mg capsule,extended release 24hr 150 mg PO DAILY Qty: 90 RF: 0 famotidine [Pepcid] 20 mg tablet 20 mg PO DAILY Qty: 30 RF: 0 Follow up/Referrals: Ramona Mancilla MD [Physician] - 11/01/19 Diet/Activity/Treatments Diet: Low-fat Activity: No lifting >20 lbs x 4 weeks. Walking only for exercise for 4 weeks[address] while taking narcotics. Other treatments: Continue to empty drain twice daily Skin/Wound/Dressing Care Report to your healthcare provider any signs of infection, such as:: chills, fever, increased pain and unusual redness Visit Report/Discharge Packet Instructions: DI for Cholecystectomy, DI for Laparoscopy, Cholecystectomy -- Laparoscopic Surgery, DI for Prescription Opioid Use, [facility]: Wound Care Quality VTE Deep Vein Thrombosis/Pulmonary Embolism Present on Admission: No
[2019-10-30] MEDS: VENLAFAXINE ER 75 MG CAP 150 MG PO (09:26)
[2019-10-30] MEDS: ACETAMINOPHEN 325 MG TABLET 650 MG PO (09:26)
--- NOTE | 2019-10-30 10:42 | PC.NURSE ---
Day shift: Pt left unit in WC to his car. Taken by KEDAR Gardner. Paperwork signed and all questions answered. Pt has MD script and all personal belongings. Instructed Pt how to care for and empty his Amos drain.
== END 2019-10-30 10:44 | disposition home or self-care (01) | DRG 263 ==
LOC: ED 09:10 → AC 09:38
PROVIDERS: Emergency Medicine; Surgery; Admitting Provider Specialist; Emergency Provider Emergency Medicine; Referring Provider Emergency Medicine; Visit Provider Specialist
PROC: 0FT44ZZ Resection of Gallbladder, Percutaneous Endoscopic Approach (ICD-10-PCS; CPT 47562; principal; 2019-10-28 08:00)
DX: K81.0 Acute cholecystitis (principal); K82.0 Obstruction of gallbladder; K82.A1 Gangrene of gallbladder in cholecystitis; F32.9 Major depressive disorder, single episode, unspecified; E66.9 Obesity, unspecified; Z68.35 Body mass index [BMI] 35.0-35.9, adult
CPT/HCPCS: 36415; 47562; 71045; 74177; 78226; 80053; 81003; 81015; 82550; 82553; 83605; 83690; 84145; 84484; 85025; 85610; 85730; 87040; 87635; 93005; 96361; 96374; 96375; 99222; 99284; 99285; A9537; C9113; J0330; J1100; J1170; J1650; J1885; J2250; J2405; J2543; J2704; J2765; J3010

== ENCOUNTER → 2019-11-16 11:55 | Outpatient (CLI) | payer OTHER, MEDICAID, SELFPAY ==
[2019-10-26 11:03] VITALS: BMI 34.8
[2019-11-16 13:03] LABS: Add Manual Diff / Slide Review NO; Basophils Absolute Auto 0 /uL (0-100); Basophils Percent Auto 0.1 % (0-2); Eosinophils Absolute Auto 0 /uL (0-450); Eosinophils Percent Auto 0.1 % (2-4); Hematocrit 39.4 % (41-53); Hemoglobin 13.6 g/dL (13.5-17.5); Lymphocytes Absolute Auto 2900 /uL (1100-4500); Lymphocytes Percent Auto 39.7 % (25-40); Mean Corpuscular HGB Conc 34.6 % (30-36); Mean Corpuscular Hemoglobin 29.4 PG (26-34); Monocytes Absolute Auto 1000 /uL (0-900); Monocytes Percent Auto 13.4 % (3-14); Neutrophils Absolute Auto 3400 /uL (1500-7000); Neutrophils Percent Auto 46.7 % (50-75); Platelet Count 305 X10^3/uL (150-400); Red Blood Cell Count 4.63 X10^6/uL (4.5-5.9); White Blood Cell Count 7.3 X10^3/uL (4.5-11.0)
[2019-11-16 13:40] LABS: Alanine Aminotransferase 33 IU/L (<50); Albumin 4.8 g/dL (3.5-5.0); Albumin Globulin Ratio 1.5 (1.0-2.8); Alkaline Phosphatase 119 U/L (38-126); Aspartate Aminotransferase 36 IU/L (17-59); BUN Creatinine Ratio 11.8 (6-22); Bilirubin Total 0.4 mg/dL (0.2-1.3); Blood Urea Nitrogen 8 mg/dL (9-20); Calcium 9.9 mg/dL (8.4-10.2); Carbon Dioxide 27 mmol/L (22-32); Chloride 101 mmol/L (98-107); Estimated Glomerular Filt Rate > 60.0 mL/min (>60); Globulin 3.3 g/dL (1.7-4.1); Glucose 98 mg/dL (70-100); HEMOLYSIS < 15 (0-50); Potassium 4.3 mmol/L (3.4-5.1); Sodium 140 mmol/L (137-145); Total Protein 8.1 g/dL (6.3-8.2)
== END ==
PROVIDERS: Referring Provider Surgery; Visit Provider Surgery
DX: Z90.49 Acquired absence of other specified parts of digestive tract (principal)
CPT/HCPCS: 36415; 80053; 85025

== ENCOUNTER → 2020-08-30 09:56 | Outpatient (CLI) | payer OTHER, MEDICAID, SELFPAY ==
[2020-08-08 13:00] VITALS: BMI 34.8
[2020-08-30 11:06] LABS: Add Manual Diff / Slide Review NO; Basophils Absolute Auto 0 /uL (0-100); Basophils Percent Auto 0.1 % (0-2); Eosinophils Absolute Auto 0 /uL (0-450); Eosinophils Percent Auto 0.1 % (2-4); Hematocrit 38.8 % (41-53); Hemoglobin 13.6 g/dL (13.5-17.5); Lymphocytes Absolute Auto 2800 /uL (1100-4500); Lymphocytes Percent Auto 39.2 % (25-40); Mean Corpuscular Hemoglobin 29.6 PG (26-34); Mean Corpuscular Volume 84.7 fL (80-100); Monocytes Absolute Auto 700 /uL (0-900); Monocytes Percent Auto 9.4 % (3-14); Neutrophils Absolute Auto 3700 /uL (1500-7000); Neutrophils Percent Auto 51.2 % (50-75); Platelet Count 272 X10^3/uL (150-400); Red Blood Cell Count 4.59 X10^6/uL (4.5-5.9); Red Cell Distribution Width 13.1 % (11.6-14.8); White Blood Cell Count 7.2 X10^3/uL (4.5-11.0)
[2020-08-30 11:28] LABS: Alanine Aminotransferase 29 IU/L (<50); Albumin 4.6 g/dL (3.5-5.0); Albumin Globulin Ratio 1.4 (1.0-2.8); Alkaline Phosphatase 106 U/L (38-126); Aspartate Aminotransferase 34 IU/L (17-59); Bilirubin Total 0.5 mg/dL (0.2-1.3); Blood Urea Nitrogen 9 mg/dL (9-20); Calcium 9.1 mg/dL (8.4-10.2); Carbon Dioxide 31 mmol/L (22-32); Chloride 102 mmol/L (98-107); Cholesterol 229 mg/dL (140-199); Estimated Glomerular Filt Rate > 60.0 mL/min (>60); Globulin 3.4 g/dL (1.7-4.1); Glucose 93 mg/dL (70-100); HDL Cholesterol 52 mg/dL (40-60); HEMOLYSIS < 15 (0-50); LDL Cholesterol Calculated 148 mg/dL (<100); Potassium 3.9 mmol/L (3.4-5.1); Sodium 139 mmol/L (137-145); Triglycerides 143 mg/dL (35-150)
[2020-08-30 13:03] LABS: Thyroid Stimulating Hormone 1.23 uIU/mL (0.47-4.68)
== END ==
PROVIDERS: PCP Registered Nurse; Referring Provider Registered Nurse; Visit Provider Registered Nurse
DX: F33.2 Major depressive disorder, recurrent severe without psychotic features (principal); Z79.899 Other long term (current) drug therapy; Z83.42 Family history of familial hypercholesterolemia
CPT/HCPCS: 36415; 80053; 80061; 84439; 84443; 85025

== ENCOUNTER → 2023-04-09 09:40 | Outpatient (CLI) | payer OTHER, SELFPAY ==
[2020-08-08 13:00] VITALS: BMI 34.8
[2023-04-09 10:17] LABS: Add Manual Diff / Slide Review NO; Basophils Absolute Auto 0 /uL (0-100); Basophils Percent Auto 0.1 % (0-2); Eosinophils Absolute Auto 0 /uL (0-450); Eosinophils Percent Auto 0.2 % (2-4); Hematocrit 38.5 % (41-53); Hemoglobin 13.6 g/dL (13.5-17.5); Lymphocytes Absolute Auto 3300 /uL (1100-4500); Lymphocytes Percent Auto 38.7 % (25-40); Mean Corpuscular HGB Conc 35.3 % (30-36); Mean Corpuscular Hemoglobin 30.6 PG (26-34); Mean Corpuscular Volume 86.6 fL (80-100); Monocytes Absolute Auto 700 /uL (0-900); Monocytes Percent Auto 8.8 % (3-14); Neutrophils Absolute Auto 4500 /uL (1500-7000); Neutrophils Percent Auto 52.2 % (50-75); Platelet Count 253 X10^3/uL (150-400); Red Blood Cell Count 4.44 X10^6/uL (4.5-5.9); Red Cell Distribution Width 12.8 % (11.6-14.8); White Blood Cell Count 8.5 X10^3/uL (4.5-11.0)
[2023-04-09 11:32] LABS: Alanine Aminotransferase 26 IU/L (<50); Albumin 4.5 g/dL (3.5-5.0); Albumin Globulin Ratio 1.4 (1.0-2.8); Alkaline Phosphatase 94 U/L (38-126); Aspartate Aminotransferase 35 IU/L (17-59); BUN Creatinine Ratio 17.6 (6-22); Bilirubin Total 0.7 mg/dL (0.2-1.3); Blood Urea Nitrogen 13 mg/dL (9-20); Calcium 9.8 mg/dL (8.4-10.2); Carbon Dioxide 30 mmol/L (22-32); Chloride 99 mmol/L (98-107); Cholesterol 149 mg/dL (140-199); Estimated Glomerular Filt Rate > 60 mL/min (>60); Globulin 3.2 g/dL (1.7-4.1); Glucose 87 mg/dL (70-100); HDL Cholesterol 44 mg/dL (40-60); HEMOLYSIS < 15 (0-50); LDL Cholesterol Calculated 80 mg/dL (<100); Potassium 3.6 mmol/L (3.4-5.1); Sodium 138 mmol/L (137-145); Testosterone 253 ng/dL (132-813); Total Protein 7.7 g/dL (6.3-8.2); Triglycerides 126 mg/dL (35-150)
[2023-04-09 12:09] LABS: Hemoglobin A1C% w Est Avg Glu 4.5 % (4.0-6.0)
[2023-04-09 12:25] LABS: TSH w/ Reflex to FT4 2.89 uIU/mL (0.47-4.68)
== END ==
PROVIDERS: PCP Family Medicine; Referring Provider Family Medicine; Visit Provider Family Medicine
DX: E78.5 Hyperlipidemia, unspecified (principal); F33.2 Major depressive disorder, recurrent severe without psychotic features
CPT/HCPCS: 36415; 80053; 80061; 83036; 84403; 84443; 85025